=== PATIENT | male | born 1940 | race Caucasian/White ===

== ENCOUNTER 2018-07-16 11:09 | Emergency (ER) | payer MEDICARE, OTHER ==
--- NOTE | 2018-07-16 12:18 | EDM.PDOC ---
ED HPI GENERAL MEDICAL PROBLEM - General Chief Complaint: General Stated Complaint: RIGHT ELBOW PAIN Time Seen by Provider: 07/16/18 12:04 Source of Information: Reports: Patient History Limitations: Reports: No Limitations - History of Present Illness INITIAL COMMENTS - FREE TEXT/NARRATIVE: Patient is a 70-year-old gentleman who presents to the emergency department this morning with a complaint of right shoulder and elbow pain. Patient states discomfort has been intermittent, however started to become worse yesterday. Patient admits to shoveling snow 2 days ago. Patient does have a history of arthritic pain. Patient states he was unable to sleep last night. Patient also states he is having some dyspnea with exertion and also when he lies flat he can't catch his breath. Patient is currently on 40 mg Lasix daily. Patient does have chronic history of lower extremity edema. 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 Right Elbow Pain Score (Numeric/FACES): 8 - Related Data Allergies Allergy/AdvReac Type Severity Reaction Status Date / Time No Known Drug Allergies Allergy Cannot Verified 07/16/18 11:30 Remember Home Meds: Home Meds Benazepril HCl [Lotensin] 40 mg PO DAILY 07/16/18 [History] Cyanocobalamin (Vitamin B-12) [Vitamin B-12] 1,000 mcg PO DAILY 07/16/18 [ History] Fish Oil/[place]-3 Fatty Acids [Fish Oil 1,000 MG] 1 each PO DAILY 07/16/18 [ History] Furosemide 40 mg PO DAILY 07/16/18 [History] Lactobacillus Combination No.4 [Probiotic] 1 each PO DAILY 07/16/18 [History] Metoprolol Succinate [Toprol Xl] 50 mg PO DAILY 07/16/18 [History] Multivitamin [Multi-Vitamin Daily] 1 each PO DAILY 07/16/18 [History] atorvaSTATin [Lipitor] 20 mg PO DAILY 07/16/18 [History] Social & Family History - Tobacco Use Smoking Status *Q: Former Smoker Used Tobacco, but Quit: Yes Month/Year Tobacco Last Used: quit smoking 30 yrs ago Second Hand Smoke Exposure: No - Caffeine Use Caffeine Use: Reports: Coffee, Tea - Alcohol Use Days Per Week of Alcohol Use: 7 Number of Drinks Per Day: 4 Total Drinks Per Week: 28 - Recreational Drug Use Recreational Drug Use: No ED ROS GENERAL - Review of Systems Review Of Systems: ROS reveals no pertinent complaints other than HPI. Constitutional: Reports: No Symptoms HEENT: Reports: No Symptoms Respiratory: Reports: Shortness of Breath Cardiovascular: Reports: Blood Pressure Problem, Dyspnea on Exertion Endocrine: Reports: No Symptoms GI/Abdominal: Reports: No Symptoms : Reports: No Symptoms Musculoskeletal: Reports: Shoulder Pain (Right), Arm Pain (Right elbow) Skin: Reports: No Symptoms Neurological: Reports: No Symptoms Psychiatric: Reports: No Symptoms Hematologic/Lymphatic: Reports: No Symptoms Immunologic: Reports: No Symptoms ED EXAM, GENERAL - Physical Exam Exam: See Below Exam Limited By: No Limitations General Appearance: Alert, WD/WN, No Apparent Distress Throat/Mouth: Normal Inspection, Normal Oropharynx, No Airway Compromise Head: Atraumatic, Normocephalic Neck: Normal Inspection, Supple, Non-Tender, Full Range of Motion Respiratory/Chest: No Respiratory Distress, Rales (Bibasilar) Cardiovascular: Normal Peripheral Pulses, Regular Rate, Rhythm, No Murmur GI/Abdominal: Normal Bowel Sounds, Soft, Non-Tender Back Exam: Normal Inspection Extremities: Pedal Edema (3+ bilateral, with chronic changes proximal to knee), Joint Swelling (Right shoulder crepitus, without ecchymosis, warmth, or erythema.), Limited Range of Motion (Right shoulder due to discomfort). No: Slow Capillary Refill, Redness Neurological: Alert, Oriented, Normal Cognition Psychiatric: Normal Affect, Normal Mood Skin Exam: Warm, Dry, Intact, Normal Color, No Rash Lymphatic: No Adenopathy Course - Vital Signs Last Recorded V/S: Last Vital Signs Temp 96.6 F 07/16/18 11:22 Pulse 54 L 07/16/18 11:22 Resp 20 07/16/18 11:22 BP 180/100 H 07/16/18 11:22 Pulse Ox 94 L 07/16/18 11:22 - Orders/Labs/Meds Orders: Active Orders 24 hr Category Date Time Status Chest 2V [CR] Stat Exams 07/16/18 11:42 Ordered Shoulder Comp Rt [CR] Stat Exams 07/16/18 12:01 Ordered Labs: Laboratory Tests 07/16/18 07/16/18 Range/Units 11:58 11:58 WBC 9.28 (5.00-10.00) 10^3/uL RBC 4.96 (4.50-6.00) 10^6/uL Hgb 15.5 (13.0-17.0) g/dL Hct 46.8 (40.0-52.0) % MCV 94.4 H (82.0-92.0) fL MCH 31.3 H (27.0-31.0) pg MCHC 33.1 (32.0-36.0) g/dL RDW 14.0 (11.5-14.5) % Plt Count 188 (150-400) 10^3/uL MPV 10.2 (7.4-10.4) fL Immature Gran % (Auto) 0.2 (0.0-5.0) % Neut % (Auto) 74.1 H (50.0-70.0) % Lymph % (Auto) 15.6 L (20.0-40.0) % [place] % (Auto) 8.4 H (2.0-8.0) % Eos % (Auto) 1.5 (1.0-3.0) % Baso % (Auto) 0.2 (0.0-1.0) % Immature Gran # (Auto) 0.02 (0.00-0.50) 10^3/uL Neut # (Auto) 6.87 (2.50-7.00) 10^3/uL Lymph # (Auto) 1.45 (1.00-4.00) 10^3/uL [place] # (Auto) 0.78 (0.10-0.80) 10^3/uL Eos # (Auto) 0.14 (0.10-0.30) 10^3/uL Baso # (Auto) 0.02 (0.00-0.10) 10^3/uL Sodium 144 (136-145) mmol/L Potassium 3.9 (3.3-5.3) mmol/L Chloride 104 (98-115) mmol/L Carbon Dioxide 30.3 (21.0-32.0) mmol/L Anion Gap 13.6 (5-15) mmol/L BUN 17 (6-25) mg/dL Creatinine 0.72 (0.51-1.17) mg/dL Est Cr Clr Drug Dosing 92.81 mL/min Estimated GFR (MDRD) > 60 mL/min Glucose 107 H (75 - 99) mg/dL Calcium 9.0 (8.7-10.3) mg/dL Total Bilirubin 0.7 (0.2-1.0) mg/dL AST 12 L (15-37) U/L ALT 14 (12-78) U/L Alkaline Phosphatase 85 (46-116) IU/L B-Natriuretic Peptide 298 H (0-100) pg/mL Total Protein 7.1 (6.4-8.2) g/dL Albumin 3.54 (3.00-4.80) g/dL - Radiology Interpretation Free Text/Narrative:: Chest x-ray shows no acute cardiopulmonary process. Right shoulder x-ray shows osteophytic overgrowth of the humeral head versus impacted fracture. However, Patient does deny any injury. - Re-Assessments/Exams Free Text/Narrative Re-Assessment/Exam: 07/16/18 13:04 Patient afebrile, nontoxic appearing, vital signs stable. Right shoulder sling applied. Patient given 8 mg of dexamethasone IM, 5 mg hydrocodone to go. Patient will follow-up at [facility] tomorrow. Departure - Departure Time of Disposition: 13:08 Disposition: Home, Self-Care 01 Condition: Good Clinical Impression: Arthritis, shoulder region Hypertension Qualifiers: Hypertension type: unspecified Qualified Code(s): I10 - Essential (primary) hypertension - Discharge Information Instructions: Arthritis, Kizz-mg-Upeh, How to Take Your Blood Pressure, Easy-to -Read, What You Need to Know About Osteoarthritis, Hypertension, How to Use a Sling Referrals: Haylie Nuñez PA-C [Primary Care Provider] - Forms: ED Department Discharge Additional Instructions: Follow-up at [facility] tomorrow. Return to emergency department sooner if symptoms continue or worsen. Take medication as directed. - My Orders Last 24 Hours: My Active Orders 07/16/18 11:42 Chest 2V [CR] Stat 07/16/18 12:01 Shoulder Comp Rt [CR] Stat - Assessment/Plan Last 24 Hours: My Active Orders 07/16/18 11:42 Chest 2V [CR] Stat 07/16/18 12:01 Shoulder Comp Rt [CR] Stat Assessment:: Right shoulder arthritis Plan: Follow-up at clinic
[2018-07-16 12:32] LABS: ANION GAP 13.6 mmol/L (5-15); CHLORIDE,CL 104 mmol/L (98-115); SODIUM,NA 144 mmol/L (136-145)
[2018-07-16] MEDS ORDERED: Dexamethasone 4 MG/ML SDV IM ONE (12:37)
--- NOTE | 2018-07-16 12:52 | CR ---
[id number] RAD/RAD Shoulder Right 2V Min EXAM: RAD Shoulder Right 2V Min CLINICAL DATA: RIGHT SHOULDER PAIN COMPARISON: NO PREVIOUS SIMILAR EXAM IS AVAILABLE. FINDINGS: There appears to be an impacted humeral neck fracture, age indeterminate. There are degenerative changes. There is loss of the subacromial joint space. IMPRESSION: APPEARANCE OF IMPACTED HUMERAL NECK FRACTURE AGE INDETERMINATE. ASSOCIATED DEGENERATIVE CHANGES. OSTEOPHYTIC OVERGROWTH OF THE HUMERAL HEAD COULD RESULT IN A SIMILAR APPEARANCE BUT AN IMPACTED FRACTURE IS MORE LIKELY. Edinson Tuttle MD 07/16/18 0220 Thank you for allowing us to participate in the care of your patient.
--- NOTE | 2018-07-16 12:54 | CR ---
[id number] RAD/RAD Chest PA And Lateral EXAM: RAD Chest PA And Lateral CLINICAL DATA: SHORTNESS OF BREATH COMPARISON: NO PREVIOUS SIMILAR EXAM IS AVAILABLE. FINDINGS: There is no pneumonia or edema. The cardiac silhouette is moderately enlarged and the thoracic aorta moderately tortuous. The shoulders are compared between right and left sides. There is slight asymmetry in appearance of the right side. It is not entirely clear if there is an impacted fracture of the right shoulder based upon the stable appearance of the left shoulder on the chest radiograph. Further views of the right shoulder may be helpful to help in this distinction. IMPRESSION: NO PNEUMONIA OR EDEMA. NO DEFINITE RIGHT SHOULDER FRACTURE. Edinson Tuttle MD 07/16/18 1819 Thank you for allowing us to participate in the care of your patient.
[2018-07-16] MEDS ORDERED: Acetaminophen/HYDROcodone 325-10 MG Tab PO ONE (13:07)
== END 2018-07-16 13:25 | disposition home or self-care (01) ==
LOC: KA.ED 11:09
DX: M19.011 Primary osteoarthritis, right shoulder (principal); Z79.899 Other long term (current) drug therapy; Z87.891 Personal history of nicotine dependence
CPT/HCPCS: 36415; 71046; 73030-RT; 80053; 83880; 85025; 96372; 99283; 99283-25; A9270-GY; J1100

== ENCOUNTER 2019-03-09 14:52 | Observation (INO) | payer MEDICARE, OTHER ==
[2019-03-09 15:42] LABS: ANION GAP 14.9 mmol/L (5-15); CHLORIDE,CL 96 mmol/L (98-115); SODIUM,NA 138 mmol/L (136-145)
--- NOTE | 2019-03-09 15:44 | CR ---
[id number] RAD/RAD Chest PA And Lateral EXAM: FRONTAL AND LATERAL CHEST INDICATION: UNSPECIFIED ATRIAL FIBRILLATION. COMPARISON: July 16, 2018. DISCUSSION: Stable cardiomegaly. Mild pulmonary edema is new or increased relative to the previous examination. Trace bilateral pleural effusions. IMPRESSION: 1. Mild congestive heart failure. Andrew James MD 03/09/19 1541 Thank you for allowing us to participate in the care of your patient.
[2019-03-09] MEDS ORDERED: Sodium Chloride 0.9% 10 ML Syringe FLUSH PRN (16:30)
[2019-03-09] MEDS: Sodium Chloride 0.9% 1,000 ML IV SCH (17:29)
[2019-03-09] MEDS ORDERED: Non-Formulary Medication 1 Each (Glucosam/Chondr/Collagn/Hyalur [Glucosamine & Chondroitin PO SCH (17:45)
[2019-03-09] MEDS ORDERED: cefTRIAXone 1 GM Vial IVPUSH ONE (18:00)
[2019-03-09] MEDS ORDERED: Azithromycin 250 MG Tab PO ONE (18:00)
[2019-03-09] MEDS ORDERED: GABAPENTIN 300 MG PO SCH (21:00)
[2019-03-09] MEDS: APIXABAN 5 MG PO SCH (21:32)
[2019-03-10] MEDS: Sodium Chloride 0.9% 1,000 ML IV SCH (03:31)
[2019-03-10 08:13] LABS: ANION GAP 9.9 mmol/L (5-15); CHLORIDE,CL 98 mmol/L (98-115); SODIUM,NA 136 mmol/L (136-145)
[2019-03-10 08:44] VITALS: BP 142/79; PULSE 110
[2019-03-10] MEDS: APIXABAN 5 MG PO SCH (08:44)
[2019-03-10] MEDS ORDERED: Cyanocobalamin (Vitamin B12) 500 MCG Tab PO SCH (09:00)
[2019-03-10] MEDS ORDERED: BENAZEPRIL 40 MG PO SCH (09:00)
[2019-03-10] MEDS ORDERED: Fish Oil/Omega-3 Fatty Acids 1 Gm Cap PO SCH (09:00)
[2019-03-10] MEDS ORDERED: HYDROCHLOROTHIAZIDE 25 MG PO SCH (09:00)
[2019-03-10] MEDS ORDERED: ATORVASTATIN 20 MG PO SCH (09:00)
[2019-03-10] MEDS ORDERED: METOPROLOL SUCCINATE 50 MG PO SCH (09:00)
[2019-03-10] MEDS ORDERED: Multivitamins with Minerals/Iron/Folic Acid/Lycopene Tab PO SCH (09:00)
[2019-03-10] MEDS ORDERED: Ibuprofen 600 MG Tab PO SCH (09:00)
[2019-03-10] MEDS ORDERED: Acetaminophen 325 MG Tab PO SCH (09:00)
[2019-03-10 10:19] LABS: HEMOGLOBIN A1C 5.8 % (4.3-5.7)
--- NOTE | 2019-03-10 10:35 | PCM.DCSUM1 ---
Discharge Summary - Hospital Course Free Text/Narrative:: Patrick is discharged from an observation stay from 03/09/19 - 03/10/19 for generalized weakness, sinus tachycardia and leukocytosis. He had been feeling unwell for approximately 2 weeks. He has a recent hx of being diagnosed with a- fib with RVR and is rate controlled on metoprolol and recently started Eliquis 5 mg PO BID. He notes that he had been waking up sweating at night, he felt he had a fever but never did check his temp. He had a mild cough that was minimally productive in the mornings. He had no ST or congestion, no ear pain or sinus pressure. He denies any sick contacts. He did receive his annual influenza vaccine this year. He noted the day of admission he was very weak and he had terrible body aches. His drove him to the clinic for an evaluation. Patrick was concerned he had "walking pneumonia". Work-up in clinic included CXR, EKG, and labs. CXR showed mild CHF but no infiltrates. EKG was sinus tachycardia, no a-fib. Influenza swab was negative. Troponin was <0.04. WBC was elevated at 12.16 with a left shift of 82 % neutrophils. Given his overall weakness and ill appearance he was admitted. He was empirically treated for a respiratory illness with azithromycin 500 mg PO x 1 dose and rocephin 1 gram IV x 1 dose. He had a mild temp of 99 at admission. Blood cultures were not obtained as he had no pneumonia by CXR. UA was obtained which was negative. Amite screen was negative. He was started on IVF's at 100 cc per hour and he states that by midnight he was feeling much better. He was able to eat breakfast this morning and has been up to the bathroom feeling much less weak. He would like to go home today. WBC has improved to 10.04 with a left shift improving to 74%. Antibiotics are not indicated at discharge. He also had two elevated BG's on his labs (one non-fasting). A1C was 5.8. He has an appointment with cardiology on 03/14/19 in [place]. There will be no medication changes at discharge. He was encouraged to rest today and tomorrow and drink plenty of water at home. He could have stayed another day, however, he wanted to go home today and no infectious source was identified and overall he is clinically improved and so I feel he is safe to discharge home today. Admission Date: 03/09/19 Discharge Date: 03/10/19 Admission Diagnoses: Generalized Weakness Sinus tachycardia Neutrophilic leukocytosis Discharge Diagnoses: Generalized Weakness, improving. Sinus tachycardia, improving, rate low 100's. Neutrophilic leukocytosis, improving. Secondary, chronic, diagnoses: Anxiety Arthritis A-fib, paroxysmal BPH HTN Hyperlipidemia Obesity Peripheral neuropathy Psoriasis Severe SHAQUILLE Vit D deficiency Diagnosis: Stroke: No Modified Meagan Scale: No Signif.Disability Despite Sympt.Able to Carry Out Usual Act./Duties Modified [place] Scale Score: 1 - Discharge Data Discharge Date: 03/10/19 Discharge Disposition: Home, Self-Care 01 Condition: Good - Referral to Home Health Primary Care Physician: Kassy Fam MD - Discharge Diagnosis/Problem(s) (1) Generalized weakness SNOMED Code(s): 70450100 ICD Code: R53.1 - WEAKNESS Status: Acute Current Visit: Yes (2) Sinus tachycardia SNOMED Code(s): 34450475 ICD Code: R00.0 - TACHYCARDIA, UNSPECIFIED Status: Acute Current Visit: Yes (3) Neutrophilic leukocytosis SNOMED Code(s): 594675796, 478307804 ICD Code: D72.9 - DISORDER OF WHITE BLOOD CELLS, UNSPECIFIED Status: Acute Current Visit: Yes - Patient Instructions Diet: Regular Diet as Tolerated Activity: Rest and Relax Today - Discharge Plan *PRESCRIPTION DRUG MONITORING PROGRAM REVIEWED*: Not Applicable *COPY OF PRESCRIPTION DRUG MONITORING REPORT IN PATIENT SELVIN: Not Applicable Home Medications: Home Meds Benazepril HCl [Lotensin] 40 mg PO DAILY 07/16/18 [History] Cyanocobalamin (Vitamin B-12) [Vitamin B-12] 1,000 mcg PO DAILY 07/16/18 [ History] Fish Oil/[place]-3 Fatty Acids [Fish Oil 1,000 MG] 1 each PO DAILY 07/16/18 [ History] Metoprolol Succinate [Toprol Xl] 50 mg PO DAILY 07/16/18 [History] Multivitamin [Multi-Vitamin Daily] 1 each PO DAILY 07/16/18 [History] atorvaSTATin [Lipitor] 20 mg PO DAILY 07/16/18 [History] Acetaminophen [Tylenol] 650 mg PO DAILY 03/09/19 [History] Apixaban [Eliquis] 5 mg PO BID 03/09/19 [History] Gabapentin [Neurontin] 300 mg PO BEDTIME 03/09/19 [History] Glucosam/Chondr/Collagn/Hyalur [Glucosamine & Chondroitin Cap] 2 cap PO ASDIRECTED 03/09/19 [History] Ibuprofen 600 mg PO DAILY 03/09/19 [History] Mv-Mn/Iron/Folic Acid/Herb 190 [Vitamin D3 Complete Caplet] 1 tab PO DAILY 03/09 [History] hydroCHLOROthiazide [Hydrochlorothiazide] 25 mg PO DAILY 03/09/19 [History] - Discharge Summary/Plan Comment DC Time >30 min.: No - General Info Date of Service: 03/10/19 Admission Dx/Problem (Free Text: Generalized weakness - Patient Data Vitals - Most Recent: Last Vital Signs Temp 98.6 F 03/10/19 06:30 Pulse 110 H 03/10/19 08:43 Resp 20 03/10/19 06:30 BP 142/79 H 03/10/19 08:43 Pulse Ox 91 L 03/10/19 03:33 Weight - Most Recent: 301 lb 3.2 oz I&O - Last 24 hours: Intake & Output 03/09/19 03/10/19 03/10/19 22:59 06:59 14:59 Intake Total 785 1066 Output Total 400 650 Balance 385 416 Lab Results - Last 24 hrs: Laboratory Results - last 24 hr 03/09/19 03/09/19 03/09/19 Range/Units 15:10 15:10 15:10 WBC 12.16 H (5.00-10.00) 10^3/uL RBC 4.64 (4.50-6.00) 10^6/uL Hgb 14.0 (13.0-17.0) g/dL Hct 43.7 (40.0-52.0) % MCV 94.2 H (82.0-92.0) fL MCH 30.2 (27.0-31.0) pg MCHC 32.0 (32.0-36.0) g/dL RDW 13.5 (11.5-14.5) % Plt Count 317 D (150-400) 10^3/uL MPV 9.9 (7.4-10.4) fL Immature Gran % (Auto) 0.3 (0.0-5.0) % Neut % (Auto) 82.3 H (50.0-70.0) % Lymph % (Auto) 7.9 L (20.0-40.0) % [place] % (Auto) 8.7 H (2.0-8.0) % Eos % (Auto) 0.6 L (1.0-3.0) % Baso % (Auto) 0.2 (0.0-1.0) % Immature Gran # (Auto) 0.04 (0.00-0.50) 10^3/uL Neut # (Auto) 10.00 H (2.50-7.00) 10^3/uL Lymph # (Auto) 0.96 L (1.00-4.00) 10^3/uL [place] # (Auto) 1.06 H (0.10-0.80) 10^3/uL Eos # (Auto) 0.07 L (0.10-0.30) 10^3/uL Baso # (Auto) 0.03 (0.00-0.10) 10^3/uL Sodium 138 (136-145) mmol/L Potassium 4.0 (3.3-5.3) mmol/L Chloride 96 L (98-115) mmol/L Carbon Dioxide 31.1 (21.0-32.0) mmol/L Anion Gap 14.9 (5-15) mmol/L BUN 14 (6-25) mg/dL Creatinine 0.65 (0.51-1.17) mg/dL Est Cr Clr Drug Dosing TNP Estimated GFR (MDRD) > 60 mL/min Glucose 161 H (75 - 99) mg/dL Hemoglobin A1c (4.3-5.7) % Calcium 9.7 (8.7-10.3) mg/dL Troponin I < 0.04 (0.00-0.070) ng/mL Specimen Type Urine Color (YELLOW) Urine Appearance (CLEAR) Urine pH (5.0-9.0) Ur Specific Gabbs (1.005-1.030) Urine Protein (NEGATIVE) mg/dL Urine Glucose (UA) (NEGATIVE) mg/dL Urine Ketones (NEGATIVE) mg/dL Urine Occult Blood (NEGATIVE) Urine Nitrite (NEGATIVE) Urine Bilirubin (NEGATIVE) Urine Urobilinogen (0.2-1.0) E.U./dL Ur Leukocyte Esterase (NEGATIVE) Urine RBC (0-5) /HPF Urine WBC (0-5) /HPF Ur Epithelial Cells /LPF Urine Bacteria (NONE TO FEW) /HPF Monoscreen (NEGATIVE) 03/09/19 03/09/19 03/10/19 Range/Units 15:10 18:40 07:08 WBC 10.04 H (5.00-10.00) 10^3/uL RBC 4.16 L (4.50-6.00) 10^6/uL Hgb 12.8 L (13.0-17.0) g/dL Hct 39.4 L (40.0-52.0) % MCV 94.7 H (82.0-92.0) fL MCH 30.8 (27.0-31.0) pg MCHC 32.5 (32.0-36.0) g/dL RDW 13.3 (11.5-14.5) % Plt Count 275 (150-400) 10^3/uL MPV 10.3 (7.4-10.4) fL Immature Gran % (Auto) 0.3 (0.0-5.0) % Neut % (Auto) 74.3 H (50.0-70.0) % Lymph % (Auto) 14.4 L (20.0-40.0) % Amite % (Auto) 10.2 H (2.0-8.0) % Eos % (Auto) 0.4 L (1.0-3.0) % Baso % (Auto) 0.4 (0.0-1.0) % Immature Gran # (Auto) 0.03 (0.00-0.50) 10^3/uL Neut # (Auto) 7.46 H (2.50-7.00) 10^3/uL Lymph # (Auto) 1.45 (1.00-4.00) 10^3/uL [place] # (Auto) 1.02 H (0.10-0.80) 10^3/uL Eos # (Auto) 0.04 L (0.10-0.30) 10^3/uL Baso # (Auto) 0.04 (0.00-0.10) 10^3/uL Sodium (136-145) mmol/L Potassium (3.3-5.3) mmol/L Chloride (98-115) mmol/L Carbon Dioxide (21.0-32.0) mmol/L Anion Gap (5-15) mmol/L BUN (6-25) mg/dL Creatinine (0.51-1.17) mg/dL Est Cr Clr Drug Dosing Estimated GFR (MDRD) mL/min Glucose (75 - 99) mg/dL Hemoglobin A1c (4.3-5.7) % Calcium (8.7-10.3) mg/dL Troponin I (0.00-0.070) ng/mL Specimen Type Urinvoid Urine Color Yellow (YELLOW) Urine Appearance Clear (CLEAR) Urine pH 5.0 (5.0-9.0) Ur Specific Gabbs 1.025 (1.005-1.030) Urine Protein Negative (NEGATIVE) mg/dL Urine Glucose (UA) Negative (NEGATIVE) mg/dL Urine Ketones 15 H (NEGATIVE) mg/dL Urine Occult Blood Negative (NEGATIVE) Urine Nitrite Negative (NEGATIVE) Urine Bilirubin Small H (NEGATIVE) Urine Urobilinogen 4.0 H (0.2-1.0) E.U./dL Ur Leukocyte Esterase Negative (NEGATIVE) Urine RBC 0-5 (0-5) /HPF Urine WBC 0-5 (0-5) /HPF Ur Epithelial Cells Rare /LPF Urine Bacteria Rare (NONE TO FEW) /HPF Monoscreen Negative (NEGATIVE) 03/10/19 03/10/19 Range/Units 07:08 07:08 WBC (5.00-10.00) 10^3/uL RBC (4.50-6.00) 10^6/uL Hgb (13.0-17.0) g/dL Hct (40.0-52.0) % MCV (82.0-92.0) fL MCH (27.0-31.0) pg MCHC (32.0-36.0) g/dL RDW (11.5-14.5) % Plt Count (150-400) 10^3/uL MPV (7.4-10.4) fL Immature Gran % (Auto) (0.0-5.0) % Neut % (Auto) (50.0-70.0) % Lymph % (Auto) (20.0-40.0) % Amite % (Auto) (2.0-8.0) % Eos % (Auto) (1.0-3.0) % Baso % (Auto) (0.0-1.0) % Immature Gran # (Auto) (0.00-0.50) 10^3/uL Neut # (Auto) (2.50-7.00) 10^3/uL Lymph # (Auto) (1.00-4.00) 10^3/uL [place] # (Auto) (0.10-0.80) 10^3/uL Eos # (Auto) (0.10-0.30) 10^3/uL Baso # (Auto) (0.00-0.10) 10^3/uL Sodium 136 (136-145) mmol/L Potassium 3.7 (3.3-5.3) mmol/L Chloride 98 (98-115) mmol/L Carbon Dioxide 31.8 (21.0-32.0) mmol/L Anion Gap 9.9 (5-15) mmol/L BUN 13 (6-25) mg/dL Creatinine 0.61 (0.51-1.17) mg/dL Est Cr Clr Drug Dosing 104.58 Estimated GFR (MDRD) > 60 mL/min Glucose 130 H (75 - 99) mg/dL Hemoglobin A1c 5.8 H (4.3-5.7) % Calcium 9.1 (8.7-10.3) mg/dL Troponin I (0.00-0.070) ng/mL Specimen Type Urine Color (YELLOW) Urine Appearance (CLEAR) Urine pH (5.0-9.0) Ur Specific Gabbs (1.005-1.030) Urine Protein (NEGATIVE) mg/dL Urine Glucose (UA) (NEGATIVE) mg/dL Urine Ketones (NEGATIVE) mg/dL Urine Occult Blood (NEGATIVE) Urine Nitrite (NEGATIVE) Urine Bilirubin (NEGATIVE) Urine Urobilinogen (0.2-1.0) E.U./dL Ur Leukocyte Esterase (NEGATIVE) Urine RBC (0-5) /HPF Urine WBC (0-5) /HPF Ur Epithelial Cells /LPF Urine Bacteria (NONE TO FEW) /HPF Monoscreen (NEGATIVE) ELIAN Results - Last 24 hrs: Microbiology 03/09/19 15:00 Influenza Type A Antigen Screen - Final Nasopharyngeal Swab NEGATIVE INFLUENZA A VIRUS AG REFERENCE RANGE: NEGATIVE Influenza Type B Antigen Screen - Final NEGATIVE INFLUENZA B VIRUS AG REFERENCE RANGE: NEGATIVE Med Orders - Current: Current Medications Acetaminophen (Tylenol) 650 mg PO DAILY [facility] Last Admin: 03/10/19 09:00 Dose: Not Given Apixaban (Eliquis) 5 mg PO BID [facility] Last Admin: 03/10/19 08:44 Dose: 5 mg Cyanocobalamin (Vitamin B12) 1,000 mcg PO DAILY [facility] Last Admin: 03/10/19 09:00 Dose: Not Given Fish Oil (Fish Oil) 1 gm PO DAILY [facility] Last Admin: 03/10/19 09:00 Dose: Not Given Gabapentin (Neurontin) 300 mg PO BEDTIME [facility] Last Admin: 03/09/19 21:41 Dose: 300 mg Hydrochlorothiazide (Hydrochlorothiazide) 25 mg PO DAILY [facility] Last Admin: 03/10/19 08:42 Dose: 25 mg Sodium Chloride (Normal Saline) 1,000 mls @ 100 mls/hr IV ASDIRECTED [facility] Last Admin: 03/10/19 03:31 Dose: 100 mls/hr Ibuprofen (Motrin) 600 mg PO DAILY [facility] Last Admin: 03/10/19 09:00 Dose: Not Given Metoprolol Succinate (Toprol Xl) 50 mg PO DAILY [facility] Last Admin: 03/10/19 08:43 Dose: 50 mg Multivitamins/Minerals (Centrum) 1 tab PO DAILY [facility] Last Admin: 03/10/19 09:00 Dose: Not Given Atorvastatin 20 Mg Tab #Patient's Own Med# 20 each PO DAILY [facility] Last Admin: 03/10/19 08:43 Dose: 20 each Benazepril 40 Mg Tab (#Patient's Own Med#) 40 each PO DAILY [facility] Last Admin: 03/10/19 08:42 Dose: 40 each Non-Formulary Medication (Glucosam/Chondr/Collagn/Hyalur [Glucosamine & Chondroitin Cap]) 2 cap PO ASDIRECTED [facility] Sodium Chloride (Saline Flush) 10 ml FLUSH Q8HR PRN PRN Reason: keep vein open Last Admin: 03/09/19 17:31 Dose: 10 ml Discontinued Medications Azithromycin (Zithromax) 500 mg PO ONETIME ONE Stop: 03/09/19 18:01 Last Admin: 03/09/19 18:13 Dose: 500 mg Ceftriaxone Sodium (Rocephin) 1 gm IVPUSH ONETIME ONE Stop: 03/09/19 18:01 Last Admin: 03/09/19 18:13 Dose: 1 gm Non-Formulary Medication (Mv-Mn/Iron/Folic Acid/Herb 190 [Vitamin D3 Complete Caplet]) 1 tab PO DAILY ISIDRO - Exam General: Reports: Alert, Oriented, Cooperative, No Acute Distress Lungs: Reports: Normal Respiratory Effort, Wheezing (Mild wheeze at the bases bilaterally) Cardiovascular: Reports: Regular Rate, Regular Rhythm, Tachycardia (Mild tachycardia), Murmurs (2/6 systolic murmur) GI/Abdominal Exam: Normal Bowel Sounds
== END 2019-03-10 12:40 | disposition home or self-care (01) ==
LOC: KA.OC 14:52 → KA.MS 16:12
PROVIDERS: ADMIT Internal Medicine; ATTEND Internal Medicine
DX: R53.1 Weakness (principal); R00.0 Tachycardia, unspecified; D72.829 Elevated white blood cell count, unspecified; F41.9 Anxiety disorder, unspecified; M19.90 Unspecified osteoarthritis, unspecified site; I48.0 Paroxysmal atrial fibrillation; N40.0 Benign prostatic hyperplasia without lower urinary tract symptoms; I10 Essential (primary) hypertension; E78.5 Hyperlipidemia, unspecified; G62.9 Polyneuropathy, unspecified; L40.9 Psoriasis, unspecified; G47.33 Obstructive sleep apnea (adult) (pediatric); E55.9 Vitamin D deficiency, unspecified; E66.9 Obesity, unspecified; Z79.899 Other long term (current) drug therapy; Z68.41 Body mass index [BMI] 40.0-44.9, adult
CPT/HCPCS: 36415; 71046; 80048; 81001; 83036; 84484; 85025; 86308; 87804; 93005; 96361; 96374; A9270-GY; G0378; J0696; J7030

== ENCOUNTER 2021-02-17 19:50 | Inpatient (IN) | payer MEDICARE, OTHER ==
[2021-02-17] MEDS ORDERED: Sodium Chloride 0.9% 10 ML Syringe FLUSH PRN (20:00)
--- NOTE | 2021-02-17 20:28 | EDM.PDOC ---
ED HPI GENERAL MEDICAL PROBLEM - General Chief Complaint: General Stated Complaint: Weakness Time Seen by Provider: 02/17/21 19:50 Source of Information: Reports: Patient, EMS, EMS Notes Reviewed History Limitations: Reports: No Limitations - History of Present Illness INITIAL COMMENTS - FREE TEXT/NARRATIVE: Carlin, 81-year-old male, delivered to the emergency department via [facility] ambulance after this evening, he slid out of bed and was unable to get up off the floor. He did not incur any injury that he is aware of and is in very good spirits. 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 He stated he has had ongoing edema issues of which medication adjustments have been made as well as pain medication adjustments. He was seen in the clinic last week having lab work done with no significant findings contributing to his symptoms. He is gabapentin had been stopped he was taken off ibuprofen and placed on tramadol, and yesterday received a prescription for hydrocodone to alternate with the tramadol for his excessive pain. He is vaccinated against COVID-19 including booster and is unknown to any e xposures. Onset: Today, Gradual Duration: Hour(s):, Getting Worse Location: Reports: Generalized Severity: Moderate Improves with: Reports: None Context: Reports: Other Associated Symptoms: Reports: Cough, Weakness, Other (edema, increased pain) - Related Data Allergies Allergy/AdvReac Type Severity Reaction Status Date / Time No Known Drug Allergies Allergy Cannot Verified 03/10/19 07:08 Remember Home Meds: Home Meds Fish Oil/Dyer-3 Fatty Acids [Fish Oil 1,000 MG] 1 each PO DAILY 07/16/18 [History] Multivitamin [Multi-Vitamin Daily] 1 each PO DAILY 07/16/18 [History] Acetaminophen [Tylenol] 650 mg PO DAILY 03/09/19 [History] Apixaban [Eliquis] 5 mg PO BID 03/09/19 [History] Gabapentin [Neurontin] 300 mg PO TID 03/09/19 [History] Ibuprofen 600 mg PO DAILY 03/09/19 [History] Mv-Mn/Iron/Folic Acid/Herb 190 [Vitamin D3 Complete Caplet] 1 tab PO DAILY 03/09/19 [History] Apremilast [Otezla] 30 mg PO BID 02/17/21 [History] Diclofenac Sodium [Voltaren] 1 applic TP BID PRN 02/17/21 [History] Ergocalciferol (Vitamin D2) [Vitamin D2] 50,000 unit PO MO 02/17/21 [History] Hydrocodone/Acetaminophen [HYDROcodone-Acetaminophen 10-325 MG] 1 each PO Q6H PRN 02/17/21 [History] Promethazine [Phenergan] 25 mg PO Q6H PRN 02/17/21 [History] Triamcinolone Acetonide [Triamcinolone Acetonide 0.1% Oint] 1 applic TOP BID 02/17/21 [History] traMADol [Ultram] 50 mg PO Q6H PRN 02/17/21 [History] Past Medical History HEENT History: Reports: Cataract, Impaired Vision Cardiovascular History: Reports: Afib, Heart Murmur, High Cholesterol, Hypertension, SOB on Exertion Respiratory History: Reports: SOB Gastrointestinal History: Reports: Chronic Constipation, GERD Genitourinary History: Reports: Urinary Incontinence Musculoskeletal History: Reports: Arthritis, Fracture, Gout Neurological History: Reports: Neuropathy, Peripheral Endocrine/Metabolic History: Reports: Obesity/BMI 30+ Hematologic History: Reports: None Oncologic (Cancer) History: Reports: None Dermatologic History: Reports: Psoriasis - Infectious Disease History Infectious Disease History: Reports: Chicken Pox, Measles, Mononucleosis, Mumps, Shingles - Past Surgical History HEENT Surgical History: Reports: Adenoidectomy, Cataract Surgery, Detached Retina, Tonsillectomy Cardiovascular Surgical History: Reports: None Respiratory Surgical History: Reports: None GI Surgical History: Reports: EGD Endocrine Surgical History: Reports: None Neurological Surgical History: Reports: None Musculoskeletal Surgical History: Reports: None Oncologic Surgical History: Reports: None Dermatological Surgical History: Reports: None Social & Family History - Family History Family Medical History: No Pertinent Family History - Tobacco Use Tobacco Use Status *Q: Former Tobacco User Used Tobacco, but Quit: Yes Month/Year Tobacco Last Used: 2015 - Caffeine Use Caffeine Use: Reports: None - Alcohol Use Days Per Week of Alcohol Use: 6 Number of Drinks Per Day: 2 Total Drinks Per Week: 12 - Recreational Drug Use Recreational Drug Use: No ED ROS GENERAL - Review of Systems Review Of Systems: See Below Constitutional: Reports: No Symptoms, Fatigue. Denies: Fever, Chills HEENT: Reports: No Symptoms Respiratory: Reports: Cough Cardiovascular: Reports: Edema. Denies: Chest Pain, Palpitations Endocrine: Reports: No Symptoms GI/Abdominal: Reports: No Symptoms : Reports: No Symptoms Musculoskeletal: Reports: Muscle Pain Skin: Reports: Other (Pain) Neurological: Reports: No Symptoms Psychiatric: Reports: No Symptoms Hematologic/Lymphatic: Reports: No Symptoms Immunologic: Reports: No Symptoms ED EXAM, GENERAL - Physical Exam Exam: See Below Free Text/Narrative:: Alert, oriented, appropriate to questions and conversation. HEENT shows no discharge nor deformity. Scar to the right frontal lobe area from previous surgery There is PERRLA with no icterus no injection. Neck is soft supple [place] with no rigidity or lymphadenopathy. Thorax he is diminished predominantly secondary to body habitus slightly more so in the bases. No wheezes nor crackles with some scattered rhonchi. Cardiac is S1-S2 I do not appreciate any irregularity to the beats, no ectopic beats auscultated in a grade 1 systolic murmur that is very faint again likely body habitus playing a part of this. He has a very large pannus of his abdomen with some skin irritation of chronicity with bowel sounds present, no tenderness to palpation. There is +3 edema to the lower extremities with some ruborous presentation of the tissue, no pain to palpation. There is edema to the wrists and hands that is +2 with radial pulse present and correlating apical heart rate. He was wearing gloves on his hands but did not explain reasoning for that. #1 Interpretation EKG Date: 02/17/21 Time: 20:23 Rhythm: NSR Rate (Beats/Min): 93 [place]: Normal P-Wave: Present QRS: Normal ST-T: Normal QT: Normal Comparison: NA - No Prior EKG Course - Vital Signs Last Recorded V/S: Last Vital Signs Temp 98.1 F 02/17/21 19:51 Pulse 90 02/17/21 21:50 Resp 20 02/17/21 21:50 BP 148/82 H 02/17/21 21:50 Pulse Ox 95 02/17/21 21:50 - Orders/Labs/Meds Orders: Active Orders 24 hr Category Date Time Status Patient Status [ADT] Routine ADT 02/17/21 23:32 Active Peripheral IV Care [RC] . DIRECTED Care 02/17/21 20:01 Active CULTURE BLOOD [BC] Stat Lab 02/17/21 20:01 Ordered CULTURE BLOOD [BC] Stat Lab 02/17/21 20:01 Ordered Sodium Chloride 0.9% [Saline Flush] Med 02/17/21 20:00 Active 10 ml FLUSH Q8HR PRN Blood Culture x2 Reflex Set [OM.PC] Stat Oth 02/17/21 20:00 Ordered Peripheral IV Insertion Adult [OM.PC] Stat Oth 02/17/21 20:00 Ordered EKG 12 Lead [EK] Stat Ther 02/17/21 20:00 Ordered Medication Orders Sodium Chloride (Sodium Chloride 0.9% 10 Ml Syringe) 10 ml FLUSH Q8HR PRN PRN Reason: keep vein open Labs: Laboratory Tests 02/17/21 02/17/21 02/17/21 Range/Units 20:00 20:00 20:00 WBC 10.89 H (5.00-10.00) 10^3/uL RBC 4.50 (4.50-6.00) 10^6/uL Hgb 13.0 (13.0-17.0) g/dL Hct 41.0 (40.0-52.0) % MCV 91.1 (82.0-92.0) fL MCH 28.9 (27.0-31.0) pg MCHC 31.7 L (32.0-36.0) g/dL RDW 13.7 (11.5-14.5) % Plt Count 251 (150-400) 10^3/uL MPV 9.3 (7.4-10.4) fL Immature Gran % (Auto) 0.2 (0.0-5.0) % Neut % (Auto) 84.9 H (50.0-70.0) % Lymph % (Auto) 6.1 L (20.0-40.0) % [place] % (Auto) 8.4 H (2.0-8.0) % Eos % (Auto) 0.2 L (1.0-3.0) % Baso % (Auto) 0.2 (0.0-1.0) % Neut # (Auto) 9.26 H (2.50-7.00) 10^3/uL Lymph # (Auto) 0.66 L (1.00-4.00) 10^3/uL [place] # (Auto) 0.91 H (0.10-0.80) 10^3/uL Eos # (Auto) 0.02 L (0.10-0.30) 10^3/uL Baso # (Auto) 0.02 (0.00-0.10) 10^3/uL Immature Gran # (Auto) 0.02 (0.00-0.50) 10^3/uL Sodium 137 (136-145) mmol/L Potassium 2.7 L (3.5-5.1) mmol/L Chloride 96 L (98-107) mmol/L Carbon Dioxide 30.8 (21.0-32.0) mmol/L Anion Gap 12.9 (5-15) mmol/L BUN 16 (7-18) mg/dL Creatinine 0.67 (0.51-1.17) mg/dL Est Cr Clr Drug Dosing 89.28 mL/min Estimated GFR (MDRD) > 60 mL/min Glucose 127 (70-140) mg/dL Lactic Acid 1.5 (0.4-2.0) mmol/L Calcium 9.0 (8.7-10.3) mg/dL Total Bilirubin 2.8 H (0.2-1.0) mg/dL AST 22 (15-37) U/L ALT 19 (14-63) U/L Alkaline Phosphatase 98 (46-116) U/L Creatine Kinase 190 (26-276) U/L Troponin I High Sens 18.500 (0-76.000) pg/mL B-Natriuretic Peptide 430 H (0-100) pg/mL Total Protein 7.1 (6.4-8.2) g/dL Albumin 2.82 L (3.40-5.00) g/dL SARS-CoV-2 RNA (FRANK) (NEGATIVE) 02/17/21 Range/Units 20:32 WBC (5.00-10.00) 10^3/uL RBC (4.50-6.00) 10^6/uL Hgb (13.0-17.0) g/dL Hct (40.0-52.0) % MCV (82.0-92.0) fL MCH (27.0-31.0) pg MCHC (32.0-36.0) g/dL RDW (11.5-14.5) % Plt Count (150-400) 10^3/uL MPV (7.4-10.4) fL Immature Gran % (Auto) (0.0-5.0) % Neut % (Auto) (50.0-70.0) % Lymph % (Auto) (20.0-40.0) % [place] % (Auto) (2.0-8.0) % Eos % (Auto) (1.0-3.0) % Baso % (Auto) (0.0-1.0) % Neut # (Auto) (2.50-7.00) 10^3/uL Lymph # (Auto) (1.00-4.00) 10^3/uL [place] # (Auto) (0.10-0.80) 10^3/uL Eos # (Auto) (0.10-0.30) 10^3/uL Baso # (Auto) (0.00-0.10) 10^3/uL Immature Gran # (Auto) (0.00-0.50) 10^3/uL Sodium (136-145) mmol/L Potassium (3.5-5.1) mmol/L Chloride (98-107) mmol/L Carbon Dioxide (21.0-32.0) mmol/L Anion Gap (5-15) mmol/L BUN (7-18) mg/dL Creatinine (0.51-1.17) mg/dL Est Cr Clr Drug Dosing mL/min Estimated GFR (MDRD) mL/min Glucose (70-140) mg/dL Lactic Acid (0.4-2.0) mmol/L Calcium (8.7-10.3) mg/dL Total Bilirubin (0.2-1.0) mg/dL AST (15-37) U/L ALT (14-63) U/L Alkaline Phosphatase (46-116) U/L Creatine Kinase (26-276) U/L Troponin I High Sens (0-76.000) pg/mL B-Natriuretic Peptide (0-100) pg/mL Total Protein (6.4-8.2) g/dL Albumin (3.40-5.00) g/dL SARS-CoV-2 RNA (FRANK) Negative (NEGATIVE) Meds: Medications Generic Name Dose Route Start Last Admin Trade Name Freq PRN Reason Stop Dose Admin Sodium Chloride 10 ml 02/17/21 20:00 Sodium Chloride 0.9% 10 Ml Syringe FLUSH Q8HR PRN keep vein open Discontinued Medications Generic Name Dose Route Start Last Admin Trade Name Laura PRN Reason Stop Dose Admin Potassium Chloride 40 meq 02/17/21 21:54 02/17/21 22:08 Potassium Chloride 20 Meq Tab.Er PO 02/17/21 21:55 40 meq ONETIME ONE Administration - Re-Assessments/Exams Free Text/Narrative Re-Assessment/Exam: 02/18/21 00:05 Patrick's weakness progressed throughout his stay and with activity. Or he was once able to assist himself by the time his and friend arrived for his discharge was not able to get up from wheelchair with the aid of a walker to ambulate. Decision at that time for admission due to findings Departure - Departure Time of Disposition: 22:13 Disposition: Home, Self-Care 01 Condition: Good Clinical Impression: Hypokalemia, Hypoalbuminemia, Elevated bilirubin Edema Qualifiers: Edema type: unspecified Qualified Code(s): R60.9 - Edema, unspecified - Discharge Information *PRESCRIPTION DRUG MONITORING PROGRAM REVIEWED*: Not Applicable *COPY OF PRESCRIPTION DRUG MONITORING REPORT IN PATIENT SELVIN: Not Applicable Instructions: Edema, Hypokalemia, Edema, [id number] Forms: ED Department Discharge Additional Instructions: Admit to hospital per Dr Naranjo Sepsis Event Note (ED) - Evaluation Sepsis Screening Result: No Definite Risk - Focused Exam Vital Signs: Vital Signs Temp Pulse Resp BP Pulse Ox 02/17/21 21:50 90 20 148/82 H 95 02/17/21 20:35 87 20 117/59 L 94 L 02/17/21 20:15 89 21 H 125/98 H 02/17/21 20:00 92 20 147/75 H 90 L 02/17/21 19:51 98.1 F 95 19 102/64 94 L ED Communication - ED Communication Date/Time Date: 02/17/21 Time Called: 23:15 - Discussed Case With (1) Discussed Case With (1): Admitting Provider Person/s Notified (1): Kassy Naranjo-Lamar - Problem List & Annotations (1) Hypokalemia SNOMED Code(s): 25503320 Code(s): E87.6 - HYPOKALEMIA Status: Acute Priority: High (2) Hypoalbuminemia SNOMED Code(s): 682682556 Code(s): E88.09 - OTH DISORDERS OF PLASMA-PROTEIN METABOLISM, NEC Status: Acute Priority: High (3) Elevated bilirubin SNOMED Code(s): 01443241 Code(s): R17 - UNSPECIFIED JAUNDICE Status: Acute Priority: High (4) Edema SNOMED Code(s): 655496973, 345348849 Code(s): R60.9 - EDEMA, UNSPECIFIED Status: Acute Priority: High Qualifiers: Edema type: unspecified Qualified Code(s): R60.9 - Edema, unspecified (5) Generalized weakness SNOMED Code(s): 93926129 Code(s): R53.1 - WEAKNESS Status: Chronic Priority: Medium (6) COVID-19 ruled out by laboratory testing SNOMED Code(s): 383947451701073116, 808767727141121196 Code(s): Z20.822 - CONTACT WITH AND (SUSPECTED) EXPOSURE TO COVID-19 Status: Acute - Problem List Review Problem List Initiated/Reviewed/Updated: Yes - My Orders Last 24 Hours: My Active Orders 02/17/21 20:00 Sodium Chloride 0.9% [Saline Flush] 10 ml FLUSH Q8HR PRN Blood Culture x2 Reflex Set [OM.PC] Stat Peripheral IV Insertion Adult [OM.PC] Stat EKG 12 Lead [EK] Stat 02/17/21 20:01 Peripheral IV Care [RC] . DIRECTED CULTURE BLOOD [BC] Stat CULTURE BLOOD [BC] Stat 02/17/21 23:32 Patient Status [ADT] Routine - Assessment/Plan Admission H&P: Please use this note as an admission H&P Last 24 Hours: My Active Orders 02/17/21 20:00 Sodium Chloride 0.9% [Saline Flush] 10 ml FLUSH Q8HR PRN Blood Culture x2 Reflex Set [OM.PC] Stat Peripheral IV Insertion Adult [OM.PC] Stat EKG 12 Lead [EK] Stat 02/17/21 20:01 Peripheral IV Care [RC] . DIRECTED CULTURE BLOOD [BC] Stat CULTURE BLOOD [BC] Stat 02/17/21 23:32 Patient Status [ADT] Routine Plan: Admit to hospital per Dr Naranjo
[2021-02-17 20:40] LABS: ANION GAP 12.9 mmol/L (5-15); CHLORIDE,CL 96 mmol/L (98-107); SODIUM,NA 137 mmol/L (136-145)
--- NOTE | 2021-02-17 20:57 | CR ---
[id number] RAD/RAD Chest PA or AP 1V EXAM: RAD Chest PA or AP 1V INDICATION: EDEMA COMPARISON: April 2020. DISCUSSION/IMPRESSION: Cardiomediastinal silhouette is normal in size and contour. Lungs are clear. No pleural effusion or pneumothorax. Juanito Henao MD 02/17/212055 Thank you for allowing us to participate in the care of your patient.
[2021-02-17] MEDS ORDERED: Potassium Chloride 20 MEQ Tab.ER PO ONE (21:54)
[2021-02-18] MEDS: Acetaminophen 325 MG Tab PO PRN ×3 (02:36→23:14)
[2021-02-18 08:18] LABS: ANION GAP 10.9 mmol/L (5-15); CHLORIDE,CL 96 mmol/L (98-107); SODIUM,NA 137 mmol/L (136-145)
[2021-02-18] MEDS ORDERED: traMADol 50 MG Tab PO PRN (08:56)
--- NOTE | 2021-02-18 10:31 | US ---
[id number] US/US Abdomen Limited EXAM: US Abdomen Limited INDICATION: RISING BILIRUBIN COMPARISON: September 10, 2020 CT. DISCUSSION: The liver is normal in size and texture. No intrahepatic duct dilation. Common hepatic duct measures 4.2 mm. Gallbladder is surgically absent. No free fluid. IMPRESSION: 1. Negative liver ultrasound. Andrew James MD 02/18/21 1119 Thank you for allowing us to participate in the care of your patient.
[2021-02-18] MEDS ORDERED: PROMETHAZINE 25 MG PO PRN (10:49)
[2021-02-18] MEDS: Triamcinolone Acetonide 0.1% Oint 15 GM Tube TOP SCH ×2 (11:04→20:30)
[2021-02-18] MEDS: Apixaban 5 MG Tab PO SCH ×2 (11:04→20:29)
[2021-02-18] MEDS: Fish Oil/Omega-3 Fatty Acids 1 Gm Cap PO SCH (11:04)
--- NOTE | 2021-02-18 11:15 | PCM.PN ---
- General Info Date of Service: 02/18/21 Admission Dx/Problem (Free Text): Weakness, inability to care for self at home due to weakness - Review of Systems Systems Review Comment:: Patrick was admitted through the ER on 02/17 after presenting by private vehicle for diffuse pain, which had improved at the time he was in the ER, but he had slid OOB at home and was unable to get up. His is not able to lift him if he falls but somehow managed to get him up and bring him to the ER. In the ER he was noted to have an elevated bilirubin at 2.8 which was higher than on labs 2 days previous with it was 1.2. He had swelling in his hands and his legs and was weak, unable to ambulate safely independently. Decision was made to admit for strengthening and pain control. 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 He has been receiving Keytruda every 3 weeks. 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 After his 3rd chemo session he had worsening whole body pain felt to be a neuropathy related to his chemotherapy and so his gabapentin was increased to 900 mg PO BID. Minor improvement. He then presented to the clinic on 02/02 with worsening pain and so gabapentin was increased to 900 mg PO TID. He presented again on 02/16 with 10/10 diffuse pain stating "If I keep going on like this I'll be in the NH". He was started on tramadol 50 mg PO q 6 hours PRN which only offered minimal relief. It was noted on 02/16 his hands and feet were swollen. He stated "they get like this when my nerve pain flares up". He contacted the clinic on 02/17 with pain complaints and so hydrocodone 10/325 was added to his regimen alternating with Tylenol and he was instructed to not take the gabapentin in the event that was causing his swelling. Unfortunately as noted above he slid OOB and was weak and so presented to the ER. This morning when I see him he states "I'm not great, but I'm a whole heck of a lot better than I was yesterday". Pain at rest is a 2/10 and with "sudden jerking movements is a 6/10". He is weak. He feels all of this symptoms are related to the gabapentin as he states since he has not been taking that he feels much better over the last 18 hours. Bilirubin was up again today at 3 but no other LFT abnormalities. Hepatic U/S was obtained today and is negative. - Patient Data Vitals - Most Recent: Last Vital Signs Temp 97.7 F 02/18/21 06:50 Pulse 96 02/18/21 06:50 Resp 18 02/18/21 06:50 BP 107/84 02/18/21 06:50 Pulse Ox 92 L 02/18/21 06:50 Weight - Most Recent: 297 lb 5 oz I&O - Last 24 Hours: Intake & Output 02/17/21 02/18/21 02/18/21 22:59 06:59 14:59 Intake Total 0 Output Total 200 Balance -200 Lab Results Last 24 Hours: Laboratory Results - last 24 hr 02/17/21 02/17/21 02/17/21 Range/Units 20:00 20:00 20:00 WBC 10.89 H (5.00-10.00) 10^3/uL RBC 4.50 (4.50-6.00) 10^6/uL Hgb 13.0 (13.0-17.0) g/dL Hct 41.0 (40.0-52.0) % MCV 91.1 (82.0-92.0) fL MCH 28.9 (27.0-31.0) pg MCHC 31.7 L (32.0-36.0) g/dL RDW 13.7 (11.5-14.5) % Plt Count 251 (150-400) 10^3/uL MPV 9.3 (7.4-10.4) fL Immature Gran % (Auto) 0.2 (0.0-5.0) % Neut % (Auto) 84.9 H (50.0-70.0) % Lymph % (Auto) 6.1 L (20.0-40.0) % [place] % (Auto) 8.4 H (2.0-8.0) % Eos % (Auto) 0.2 L (1.0-3.0) % Baso % (Auto) 0.2 (0.0-1.0) % Neut # (Auto) 9.26 H (2.50-7.00) 10^3/uL Lymph # (Auto) 0.66 L (1.00-4.00) 10^3/uL [place] # (Auto) 0.91 H (0.10-0.80) 10^3/uL Eos # (Auto) 0.02 L (0.10-0.30) 10^3/uL Baso # (Auto) 0.02 (0.00-0.10) 10^3/uL Immature Gran # (Auto) 0.02 (0.00-0.50) 10^3/uL Sodium 137 (136-145) mmol/L Potassium 2.7 L (3.5-5.1) mmol/L Chloride 96 L (98-107) mmol/L Carbon Dioxide 30.8 (21.0-32.0) mmol/L Anion Gap 12.9 (5-15) mmol/L BUN 16 (7-18) mg/dL Creatinine 0.67 (0.51-1.17) mg/dL Est Cr Clr Drug Dosing 89.28 mL/min Estimated GFR (MDRD) > 60 mL/min Glucose 127 (70-140) mg/dL Lactic Acid 1.5 (0.4-2.0) mmol/L Calcium 9.0 (8.7-10.3) mg/dL Total Bilirubin 2.8 H (0.2-1.0) mg/dL AST 22 (15-37) U/L ALT 19 (14-63) U/L Alkaline Phosphatase 98 (46-116) U/L Creatine Kinase 190 (26-276) U/L Troponin I High Sens 18.500 (0-76.000) pg/mL B-Natriuretic Peptide 430 H (0-100) pg/mL Total Protein 7.1 (6.4-8.2) g/dL Albumin 2.82 L (3.40-5.00) g/dL SARS-CoV-2 RNA (FRANK) (NEGATIVE) 02/17/21 02/18/21 02/18/21 Range/Units 20:32 00:00 07:35 WBC 9.91 (5.00-10.00) 10^3/uL RBC 4.34 L (4.50-6.00) 10^6/uL Hgb 12.7 L (13.0-17.0) g/dL Hct 39.6 L (40.0-52.0) % MCV 91.2 (82.0-92.0) fL MCH 29.3 (27.0-31.0) pg MCHC 32.1 (32.0-36.0) g/dL RDW 13.6 (11.5-14.5) % Plt Count 252 (150-400) 10^3/uL MPV 9.3 (7.4-10.4) fL Immature Gran % (Auto) 0.3 (0.0-5.0) % Neut % (Auto) 82.9 H (50.0-70.0) % Lymph % (Auto) 6.7 L (20.0-40.0) % [place] % (Auto) 9.4 H (2.0-8.0) % Eos % (Auto) 0.4 L (1.0-3.0) % Baso % (Auto) 0.3 (0.0-1.0) % Neut # (Auto) 8.22 H (2.50-7.00) 10^3/uL Lymph # (Auto) 0.66 L (1.00-4.00) 10^3/uL [place] # (Auto) 0.93 H (0.10-0.80) 10^3/uL Eos # (Auto) 0.04 L (0.10-0.30) 10^3/uL Baso # (Auto) 0.03 (0.00-0.10) 10^3/uL Immature Gran # (Auto) 0.03 (0.00-0.50) 10^3/uL Sodium 137 (136-145) mmol/L Potassium 2.9 L (3.5-5.1) mmol/L Chloride 96 L (98-107) mmol/L Carbon Dioxide 33.0 H (21.0-32.0) mmol/L Anion Gap 10.9 (5-15) mmol/L BUN 17 (7-18) mg/dL Creatinine 0.63 (0.51-1.17) mg/dL Est Cr Clr Drug Dosing 94.95 mL/min Estimated GFR (MDRD) > 60 mL/min Glucose 132 (70-140) mg/dL Lactic Acid (0.4-2.0) mmol/L Calcium 9.0 (8.7-10.3) mg/dL Total Bilirubin 3.0 H (0.2-1.0) mg/dL AST 28 (15-37) U/L ALT 21 (14-63) U/L Alkaline Phosphatase 96 (46-116) U/L Creatine Kinase (26-276) U/L Troponin I High Sens (0-76.000) pg/mL B-Natriuretic Peptide (0-100) pg/mL Total Protein 7.3 (6.4-8.2) g/dL Albumin 2.73 L (3.40-5.00) g/dL SARS-CoV-2 RNA (FRANK) Negative (NEGATIVE) Med Orders - Current: Current Medications Acetaminophen (Acetaminophen 325 Mg Tab) 650 mg PO Q4H PRN PRN Reason: Pain (Mild 1-3)/fever Last Admin: 02/18/21 02:36 Dose: 650 mg Documented by: Acetaminophen (Acetaminophen 650 Mg Tab.Er) 650 mg PO DAILY [facility] Hydrocodone Bitart/Acetaminophen (Acetaminophen/Hydrocodone 325-10 Mg Tab) 1 tab PO Q6HR PRN PRN Reason: Pain Apixaban (Apixaban 5 Mg Tab) 5 mg PO BID [facility] Last Admin: 02/18/21 11:04 Dose: 5 mg Documented by: Diclofenac Sodium (Diclofenac Sodium 1% Gel 100 Gm Tube) 0 gm TOP BID PRN PRN Reason: Pain Fish Oil (Fish Oil/Germfask-3 Fatty Acids 1 Gm Cap) 1 gm PO DAILY [facility] Last Admin: 02/18/21 11:04 Dose: 1 gm Documented by: Multivitamins/Minerals (Multivitamins With Minerals/Iron/Folic Acid/Lycopene Tab) 1 tab PO DAILY [facility] Multivitamins/Minerals (Multivitamins With Minerals/Iron/Folic Acid/Lycopene Tab) 1 tab PO DAILY [facility] Ptom-Otezla 30 Mg (Tablet) 1 each PO BID [facility] Ptom- Vitamin D 50, (000 Units Capsule) 1 each PO MO [facility] Ptom- Promethazine (25 Mg Tablet) 1 each PO Q6H PRN PRN Reason: Nausea Potassium Chloride (Potassium Chloride 10 Meq Tab.Er) 40 meq PO WITHBREAKFAST [facility] Sodium Chloride (Sodium Chloride 0.9% 10 Ml Syringe) 10 ml FLUSH Q8HR PRN PRN Reason: keep vein open Tramadol HCl (Tramadol 50 Mg Tab) 50 mg PO Q6H PRN PRN Reason: Nausea Triamcinolone Acetonide (Triamcinolone Acetonide 0.1% Oint 15 Gm Tube) 0 gm TOP BID ISIDRO Last Admin: 02/18/21 11:04 Dose: 1 applic Documented by: Discontinued Medications Potassium Chloride (Potassium Chloride 20 Meq Tab.Er) 40 meq PO ONETIME ONE Stop: 02/17/21 21:55 Last Admin: 02/17/21 22:08 Dose: 40 meq Documented by: - Exam General: Alert, Oriented, Cooperative, No Acute Distress Lungs: Clear to Auscultation, Normal Respiratory Effort Cardiovascular: Regular Rate, Regular Rhythm, No Murmurs GI/Abdominal Exam: Normal Bowel Sounds Skin: Other (Psoriatic plaques on his legs. Hands are swollen bilaterally. Very superficial skin breakdown just above the buttocks crease.) - Patient Data Lab Results Last 24 hrs: Laboratory Results - last 24 hr 02/17/21 02/17/21 02/17/21 Range/Units 20:00 20:00 20:00 WBC 10.89 H (5.00-10.00) 10^3/uL RBC 4.50 (4.50-6.00) 10^6/uL Hgb 13.0 (13.0-17.0) g/dL Hct 41.0 (40.0-52.0) % MCV 91.1 (82.0-92.0) fL MCH 28.9 (27.0-31.0) pg MCHC 31.7 L (32.0-36.0) g/dL RDW 13.7 (11.5-14.5) % Plt Count 251 (150-400) 10^3/uL MPV 9.3 (7.4-10.4) fL Immature Gran % (Auto) 0.2 (0.0-5.0) % Neut % (Auto) 84.9 H (50.0-70.0) % Lymph % (Auto) 6.1 L (20.0-40.0) % [place] % (Auto) 8.4 H (2.0-8.0) % Eos % (Auto) 0.2 L (1.0-3.0) % Baso % (Auto) 0.2 (0.0-1.0) % Neut # (Auto) 9.26 H (2.50-7.00) 10^3/uL Lymph # (Auto) 0.66 L (1.00-4.00) 10^3/uL [place] # (Auto) 0.91 H (0.10-0.80) 10^3/uL Eos # (Auto) 0.02 L (0.10-0.30) 10^3/uL Baso # (Auto) 0.02 (0.00-0.10) 10^3/uL Immature Gran # (Auto) 0.02 (0.00-0.50) 10^3/uL Sodium 137 (136-145) mmol/L Potassium 2.7 L (3.5-5.1) mmol/L Chloride 96 L (98-107) mmol/L Carbon Dioxide 30.8 (21.0-32.0) mmol/L Anion Gap 12.9 (5-15) mmol/L BUN 16 (7-18) mg/dL Creatinine 0.67 (0.51-1.17) mg/dL Est Cr Clr Drug Dosing 89.28 mL/min Estimated GFR (MDRD) > 60 mL/min Glucose 127 (70-140) mg/dL Lactic Acid 1.5 (0.4-2.0) mmol/L Calcium 9.0 (8.7-10.3) mg/dL Total Bilirubin 2.8 H (0.2-1.0) mg/dL AST 22 (15-37) U/L ALT 19 (14-63) U/L Alkaline Phosphatase 98 (46-116) U/L Creatine Kinase 190 (26-276) U/L Troponin I High Sens 18.500 (0-76.000) pg/mL B-Natriuretic Peptide 430 H (0-100) pg/mL Total Protein 7.1 (6.4-8.2) g/dL Albumin 2.82 L (3.40-5.00) g/dL SARS-CoV-2 RNA (FRANK) (NEGATIVE) 02/17/21 02/18/21 02/18/21 Range/Units 20:32 00:00 07:35 WBC 9.91 (5.00-10.00) 10^3/uL RBC 4.34 L (4.50-6.00) 10^6/uL Hgb 12.7 L (13.0-17.0) g/dL Hct 39.6 L (40.0-52.0) % MCV 91.2 (82.0-92.0) fL MCH 29.3 (27.0-31.0) pg MCHC 32.1 (32.0-36.0) g/dL RDW 13.6 (11.5-14.5) % Plt Count 252 (150-400) 10^3/uL MPV 9.3 (7.4-10.4) fL Immature Gran % (Auto) 0.3 (0.0-5.0) % Neut % (Auto) 82.9 H (50.0-70.0) % Lymph % (Auto) 6.7 L (20.0-40.0) % [place] % (Auto) 9.4 H (2.0-8.0) % Eos % (Auto) 0.4 L (1.0-3.0) % Baso % (Auto) 0.3 (0.0-1.0) % Neut # (Auto) 8.22 H (2.50-7.00) 10^3/uL Lymph # (Auto) 0.66 L (1.00-4.00) 10^3/uL [place] # (Auto) 0.93 H (0.10-0.80) 10^3/uL Eos # (Auto) 0.04 L (0.10-0.30) 10^3/uL Baso # (Auto) 0.03 (0.00-0.10) 10^3/uL Immature Gran # (Auto) 0.03 (0.00-0.50) 10^3/uL Sodium 137 (136-145) mmol/L Potassium 2.9 L (3.5-5.1) mmol/L Chloride 96 L (98-107) mmol/L Carbon Dioxide 33.0 H (21.0-32.0) mmol/L Anion Gap 10.9 (5-15) mmol/L BUN 17 (7-18) mg/dL Creatinine 0.63 (0.51-1.17) mg/dL Est Cr Clr Drug Dosing 94.95 mL/min Estimated GFR (MDRD) > 60 mL/min Glucose 132 (70-140) mg/dL Lactic Acid (0.4-2.0) mmol/L Calcium 9.0 (8.7-10.3) mg/dL Total Bilirubin 3.0 H (0.2-1.0) mg/dL AST 28 (15-37) U/L ALT 21 (14-63) U/L Alkaline Phosphatase 96 (46-116) U/L Creatine Kinase (26-276) U/L Troponin I High Sens (0-76.000) pg/mL B-Natriuretic Peptide (0-100) pg/mL Total Protein 7.3 (6.4-8.2) g/dL Albumin 2.73 L (3.40-5.00) g/dL SARS-CoV-2 RNA (FRANK) Negative (NEGATIVE) Result Diagrams: 02/18/21 00:00 02/18/21 07:35 Sepsis Event Note - Evaluation Sepsis Screening Result: No Definite Risk - Focused Exam Vital Signs: Vital Signs Temp Temp Pulse Resp BP Pulse Ox Pulse Ox 02/18/21 06:50 97.7 F 96 18 107/84 92 L 02/18/21 03:06 99 F 02/18/21 02:43 100.2 F 101 H 20 134/68 92 L 02/18/21 02:36 100.5 F 02/18/21 00:00 98.7 F 104 H 18 132/73 92 L 92 L - Problem List Review Problem List Initiated/Reviewed/Updated: Yes - My Orders Last 24 Hours: My Active Orders 02/18/21 08:56 Diclofenac Sodium [Voltaren 1% Gel] 0 gm TOP BID PRN traMADol [Ultram] 50 mg PO Q6H PRN 02/18/21 09:00 Apixaban [Eliquis] 5 mg PO BID Fish Oil/Germfask-3 Fatty Acids [Fish Oil] 1 gm PO DAILY Triamcinolone Acetonide [Triamcinolone Acetonide 0.1% Oint] 0 gm TOP BID 02/18/21 10:45 Acetaminophen/HYDROcodone [[place] 325-10 MG] 1 tab PO Q6HR PRN 02/18/21 10:49 Patient's Own Medication [Ptom] 1 each PO Q6H PRN 02/18/21 21:00 Patient's Own Medication [Ptom] 1 each PO BID 02/19/21 05:11 CBC WITH AUTO DIFF [HEME] AM CMP [COMPREHENSIVE METABOLIC PN,CMP] [CHEM] AM 11/18/21 08:00 Potassium Chloride [Klor-Con 10] 40 meq PO WITHBREAKFAST 02/19/21 09:00 Acetaminophen [Tylenol Arthritis Pain] 650 mg PO DAILY FA/Lycopene/Lut/MV,Ca,Iron,Min [Centrum] 1 tab PO DAILY FA/Lycopene/Lut/MV,Ca,Iron,Min [Centrum] 1 tab PO DAILY 02/20/21 05:11 CBC WITH AUTO DIFF [HEME] AM CMP [COMPREHENSIVE METABOLIC PN,CMP] [CHEM] AM 02/21/21 05:11 CBC WITH AUTO DIFF [HEME] AM CMP [COMPREHENSIVE METABOLIC PN,CMP] [CHEM] AM 02/22/21 05:11 CBC WITH AUTO DIFF [HEME] AM CMP [COMPREHENSIVE METABOLIC PN,CMP] [CHEM] AM 02/23/21 05:11 CBC WITH AUTO DIFF [HEME] AM CMP [COMPREHENSIVE METABOLIC PN,CMP] [CHEM] AM 02/23/21 10:17 Patient's Own Medication [Ptom] 1 each PO MO - Assessment Assessment:: Admission Diagnoses: Weakness - Up with assistance - Possibly medication related, holding gabapentin - PT consult - If not significant improvement in the next 24 hours will get social director consult to talk about [facility] placement for rehab. Hypokalemia - KCl 40 mEq PO daily (NEW, started 02/18/2021) Pain, unclear etiology -Alternating Tramadol and Hydrocodone - Hold Gabapentin Secondary Diagnoses: Arthritis - Tylenol 650 mg PO daily Hx of Afib, currently in NSR - Eliquis 5 mg PO BID - Hold metoprolol due to recent hx of hypotension Gout - Allopurinol Hyperlipidemia - Atorvastatin 20 mg PO daily Rhona Cell Carcinoma - Raiba as an outpatient per oncology Nausea - Currently no nausea Psoriasis - Otezla BID per dermatology
[2021-02-18] MEDS ORDERED: ONDANSETRON HCL 4 MG PO PRN (11:24)
[2021-02-18] MEDS ORDERED: [UNRECOGNIZED DRUG - OTHER] TOP PRN (12:36)
[2021-02-18] MEDS ORDERED: Potassium Chloride 20 MEQ Tab.ER PO ONE (12:45)
[2021-02-18] MEDS ORDERED: Ondansetron 4 MG Tab.DIS PO PRN (15:00)
[2021-02-18] MEDS: Diclofenac Sodium 1% Gel 100 GM Tube TOP PRN (16:15)
[2021-02-18] MEDS: OTEZLA 30 MG PO SCH (20:29)
[2021-02-18] MEDS ORDERED: Melatonin 3 MG Tab PO PRN (23:04)
[2021-02-18] MEDS ORDERED: Melatonin 3 MG Tab ONE (23:12)
[2021-02-19] MEDS: Acetaminophen/HYDROcodone 325-10 MG Tab PO PRN ×2 (01:07→23:07)
[2021-02-19 07:54] LABS: ANION GAP 11.4 mmol/L (5-15); CHLORIDE,CL 98 mmol/L (98-107); SODIUM,NA 139 mmol/L (136-145)
[2021-02-19] MEDS ORDERED: Potassium Chloride 10 MEQ Tab.ER PO SCH (08:00)
[2021-02-19] MEDS ORDERED: Potassium Chloride 20 MEQ Tab.ER PO SCH (08:00)
[2021-02-19] MEDS: Fish Oil/Omega-3 Fatty Acids 1 Gm Cap PO SCH (08:47)
[2021-02-19] MEDS: Multivitamins with Minerals/Iron/Folic Acid/Lycopene Tab PO SCH (08:48)
[2021-02-19] MEDS: Acetaminophen 650 MG Tab.ER PO SCH (08:48)
[2021-02-19] MEDS: Apixaban 5 MG Tab PO SCH ×2 (08:48→21:13)
[2021-02-19] MEDS: Allopurinol 100 MG Tab PO SCH (08:48)
[2021-02-19] MEDS: Triamcinolone Acetonide 0.1% Oint 15 GM Tube TOP SCH ×2 (08:49→21:14)
[2021-02-19] MEDS: OTEZLA 30 MG PO SCH ×2 (08:50→21:14)
[2021-02-19] MEDS ORDERED: Multivitamins with Minerals/Iron/Folic Acid/Lycopene Tab PO SCH (09:00)
[2021-02-19] MEDS ORDERED: Potassium Chloride 10 MEQ Tab.ER PO ONE (12:10)
--- NOTE | 2021-02-19 12:55 | PCM.PN ---
- General Info Date of Service: 02/19/21 - Patient Data Vitals - Most Recent: Last Vital Signs Temp 97.2 F 02/19/21 11:00 Pulse 91 02/19/21 11:00 Resp 16 02/19/21 11:00 BP 126/62 02/19/21 11:00 Pulse Ox 93 L 02/19/21 11:00 Weight - Most Recent: 297 lb 5 oz I&O - Last 24 Hours: Intake & Output 02/18/21 02/19/21 02/19/21 22:59 06:59 14:59 Intake Total 200 Output Total 50 175 Balance -50 25 Lab Results Last 24 Hours: Laboratory Results - last 24 hr 02/19/21 02/19/21 Range/Units 07:18 07:18 WBC 8.38 (5.00-10.00) 10^3/uL RBC 4.31 L (4.50-6.00) 10^6/uL Hgb 12.5 L (13.0-17.0) g/dL Hct 39.2 L (40.0-52.0) % MCV 91.0 (82.0-92.0) fL MCH 29.0 (27.0-31.0) pg MCHC 31.9 L (32.0-36.0) g/dL RDW 13.6 (11.5-14.5) % Plt Count 235 (150-400) 10^3/uL MPV 9.3 (7.4-10.4) fL Immature Gran % (Auto) 0.2 (0.0-5.0) % Neut % (Auto) 81.5 H (50.0-70.0) % Lymph % (Auto) 7.0 L (20.0-40.0) % [place] % (Auto) 7.0 (2.0-8.0) % Eos % (Auto) 3.9 H (1.0-3.0) % Baso % (Auto) 0.4 (0.0-1.0) % Neut # (Auto) 6.82 (2.50-7.00) 10^3/uL Lymph # (Auto) 0.59 L (1.00-4.00) 10^3/uL [place] # (Auto) 0.59 (0.10-0.80) 10^3/uL Eos # (Auto) 0.33 H (0.10-0.30) 10^3/uL Baso # (Auto) 0.03 (0.00-0.10) 10^3/uL Immature Gran # (Auto) 0.02 (0.00-0.50) 10^3/uL Sodium 139 (136-145) mmol/L Potassium 3.0 L (3.5-5.1) mmol/L Chloride 98 (98-107) mmol/L Carbon Dioxide 32.6 H (21.0-32.0) mmol/L Anion Gap 11.4 (5-15) mmol/L BUN 17 (7-18) mg/dL Creatinine 0.59 (0.51-1.17) mg/dL Est Cr Clr Drug Dosing 101.39 mL/min Estimated GFR (MDRD) > 60 mL/min Glucose 120 (70-140) mg/dL Calcium 9.0 (8.7-10.3) mg/dL Total Bilirubin 1.7 H (0.2-1.0) mg/dL AST 37 (15-37) U/L ALT 24 (14-63) U/L Alkaline Phosphatase 90 (46-116) U/L Total Protein 6.8 (6.4-8.2) g/dL Albumin 2.53 L (3.40-5.00) g/dL Med Orders - Current: Current Medications Acetaminophen (Acetaminophen 325 Mg Tab) 650 mg PO Q4H PRN PRN Reason: Pain (Mild 1-3)/fever Last Admin: 02/18/21 23:14 Dose: 650 mg Documented by: Acetaminophen (Acetaminophen 650 Mg Tab.Er) 650 mg PO DAILY [facility] Last Admin: 02/19/21 08:48 Dose: 650 mg Documented by: Hydrocodone Bitart/Acetaminophen (Acetaminophen/Hydrocodone 325-10 Mg Tab) 1 tab PO Q6HR PRN PRN Reason: Pain Last Admin: 02/19/21 01:07 Dose: 1 tab Documented by: Allopurinol (Allopurinol 100 Mg Tab) 100 mg PO DAILY [facility] Last Admin: 02/19/21 08:48 Dose: 100 mg Documented by: Apixaban (Apixaban 5 Mg Tab) 5 mg PO BID [facility] Last Admin: 02/19/21 08:48 Dose: 5 mg Documented by: Atorvastatin Calcium (Atorvastatin 10 Mg Tab) 20 mg PO DAILY [facility] Last Admin: 02/19/21 08:48 Dose: 20 mg Documented by: Diclofenac Sodium (Diclofenac Sodium 1% Gel 100 Gm Tube) 0 gm TOP BID PRN PRN Reason: Pain Last Admin: 02/18/21 16:15 Dose: 1 applic Documented by: Fish Oil (Fish Oil/[place]-3 Fatty Acids 1 Gm Cap) 1 gm PO DAILY [facility] Last Admin: 02/19/21 08:47 Dose: 1 gm Documented by: Melatonin (Melatonin 3 Mg Tab) 3 mg PO BEDTIME PRN PRN Reason: Sleep Last Admin: 02/18/21 23:14 Dose: 3 mg Documented by: Multivitamins/Minerals (Multivitamins With Minerals/Iron/Folic Acid/Lycopene Tab) 1 tab PO DAILY [facility] Last Admin: 02/19/21 08:48 Dose: 1 tab Documented by: Ondansetron HCl (Ondansetron 4 Mg Tab.Dis) 4 mg PO Q4HR PRN PRN Reason: Nausea Ptom-Otezla 30 Mg (Tablet) 1 each PO BID [facility] Last Admin: 02/19/21 08:50 Dose: 1 each Documented by: Ptom- Vitamin D 50, (000 Units Capsule) 1 each PO MO [facility] Ptom- Promethazine (25 Mg Tablet) 1 each PO Q6H PRN PRN Reason: Nausea Ptom- Conroy Sorrento 1 each TOP DAILY PRN PRN Reason: affected areas, psoriasis Potassium Chloride (Potassium Chloride 20 Meq Tab.Er) 40 meq PO WITHBREAKFAST [facility] Last Admin: 02/19/21 08:47 Dose: 40 meq Documented by: Sodium Chloride (Sodium Chloride 0.9% 10 Ml Syringe) 10 ml FLUSH Q8HR PRN PRN Reason: keep vein open Tramadol HCl (Tramadol 50 Mg Tab) 50 mg PO Q6H PRN PRN Reason: Nausea Triamcinolone Acetonide (Triamcinolone Acetonide 0.1% Oint 15 Gm Tube) 0 gm TOP BID [facility] Last Admin: 02/19/21 08:49 Dose: 1 applic Documented by: Discontinued Medications Melatonin (Melatonin 3 Mg Tab) Confirm Administered Dose 3 mg .ROUTE .STK-MED ONE Stop: 02/18/21 23:13 Last Admin: 02/19/21 01:11 Dose: Not Given Documented by: Multivitamins/Minerals (Multivitamins With Minerals/Iron/Folic Acid/Lycopene Tab) 1 tab PO DAILY [facility] Potassium Chloride (Potassium Chloride 20 Meq Tab.Er) 40 meq PO ONETIME ONE Stop: 02/17/21 21:55 Last Admin: 02/17/21 22:08 Dose: 40 meq Documented by: Potassium Chloride (Potassium Chloride 10 Meq Tab.Er) 40 meq PO WITHBREAKFAST ISIDRO Potassium Chloride (Potassium Chloride 20 Meq Tab.Er) 40 meq PO ONETIME ONE Stop: 02/18/21 12:46 Last Admin: 02/18/21 12:40 Dose: 40 meq Documented by: - Exam Quality Assessment: DVT Prophylaxis (eliquis). No: Supplemental Oxygen General: Alert, Oriented, No Acute Distress Neck: No JVD Lungs: Clear to Auscultation, Normal Respiratory Effort Cardiovascular: Regular Rate, Regular Rhythm GI/Abdominal Exam: Normal Bowel Sounds Back Exam: No: CVA Tenderness (L), CVA Tenderness (R) Extremities: Other (non pitting edema, feet, Left hand and milder on right hand ) Skin: Rash (Psoriatic rash lumbar region large area) Neurological: Normal Speech, Normal Tone, Cranial Nerves Intact Psy/Mental Status: Alert, Normal Affect, Normal Mood - Patient Data Lab Results Last 24 hrs: Laboratory Results - last 24 hr 02/19/21 02/19/21 Range/Units 07:18 07:18 WBC 8.38 (5.00-10.00) 10^3/uL RBC 4.31 L (4.50-6.00) 10^6/uL Hgb 12.5 L (13.0-17.0) g/dL Hct 39.2 L (40.0-52.0) % MCV 91.0 (82.0-92.0) fL MCH 29.0 (27.0-31.0) pg MCHC 31.9 L (32.0-36.0) g/dL RDW 13.6 (11.5-14.5) % Plt Count 235 (150-400) 10^3/uL MPV 9.3 (7.4-10.4) fL Immature Gran % (Auto) 0.2 (0.0-5.0) % Neut % (Auto) 81.5 H (50.0-70.0) % Lymph % (Auto) 7.0 L (20.0-40.0) % [place] % (Auto) 7.0 (2.0-8.0) % Eos % (Auto) 3.9 H (1.0-3.0) % Baso % (Auto) 0.4 (0.0-1.0) % Neut # (Auto) 6.82 (2.50-7.00) 10^3/uL Lymph # (Auto) 0.59 L (1.00-4.00) 10^3/uL [place] # (Auto) 0.59 (0.10-0.80) 10^3/uL Eos # (Auto) 0.33 H (0.10-0.30) 10^3/uL Baso # (Auto) 0.03 (0.00-0.10) 10^3/uL Immature Gran # (Auto) 0.02 (0.00-0.50) 10^3/uL Sodium 139 (136-145) mmol/L Potassium 3.0 L (3.5-5.1) mmol/L Chloride 98 (98-107) mmol/L Carbon Dioxide 32.6 H (21.0-32.0) mmol/L Anion Gap 11.4 (5-15) mmol/L BUN 17 (7-18) mg/dL Creatinine 0.59 (0.51-1.17) mg/dL Est Cr Clr Drug Dosing 101.39 mL/min Estimated GFR (MDRD) > 60 mL/min Glucose 120 (70-140) mg/dL Calcium 9.0 (8.7-10.3) mg/dL Total Bilirubin 1.7 H (0.2-1.0) mg/dL AST 37 (15-37) U/L ALT 24 (14-63) U/L Alkaline Phosphatase 90 (46-116) U/L Total Protein 6.8 (6.4-8.2) g/dL Albumin 2.53 L (3.40-5.00) g/dL Result Diagrams: 02/19/21 07:18 02/19/21 07:18 Sepsis Event Note - Evaluation Sepsis Screening Result: No Definite Risk - Focused Exam Vital Signs: Vital Signs Temp Pulse Resp BP BP Pulse Ox 02/19/21 11:00 97.2 F 91 16 126/62 93 L 11/18/21 06:49 96.7 F L 84 20 144/76 H 95 02/19/21 02:28 96.9 F 84 20 112/65 93 L - Problem List Review Problem List Initiated/Reviewed/Updated: Yes - Plan Plan:: History summary Patrick was admitted through the ER on 02/17 after presenting by private vehicle for diffuse pain, which had improved at the time he was in the ER, but he had slid OOB at home and was unable to get up. His is not able to lift him if he falls but somehow managed to get him up and bring him to the ER. In the ER he was noted to have an elevated bilirubin at 2.8 which was higher than on labs 2 days previous with it was 1.2. He had swelling in his hands and his legs and was weak, unable to ambulate safely independently. Decision was made to admit for strengthening and pain control. 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 He has been receiving Keytruda every 3 weeks. 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 After his 3rd chemo session he had worsening whole body pain felt to be a neuropathy related to his chemotherapy and so his gabapentin was increased to 900 mg PO BID. Minor improvement. He then presented to the clinic on 02/02 with worsening pain and so gabapentin was increased to 900 mg PO TID. He presented again on 02/16 with 10/10 diffuse pain stating "If I keep going on like this I'll be in the NH". He was started on tramadol 50 mg PO q 6 hours PRN which only offered minimal relief. It was noted on 02/16 his hands and feet were swollen. He stated "they get like this when my nerve pain flares up". He contacted the clinic on 02/17 with pain complaints and so hydrocodone 10/ was added to his regimen alternating with Tylenol and he was instructed to not take the gabapentin in the event that was causing his swelling. Unfortunately as noted above he slid OOB and was weak and so presented to the ER. Hospital course 02/18; Dr. Kassy Naranjo states "I'm not great, but I'm a whole heck of a lot better than I was yesterday". Pain at rest is a 2/10 and with "sudden jerking movements is a 6/10". weak. He feels all of this symptoms are related to the gabapentin as he states since he has not been taking that he feels much better over the last 18 hours. Bilirubin was up again today at 3 but no other LFT abnormalities. Hepatic U/S was obtained today and is negative. 02/19; on rounds this morning able to monitor her level of function however still needs quite a bit of assistance however is improving in his lower extremity strength. Patient feeling better however significantly weak. No fever overnight, blood pressure is improving, heart rate normal, potassium slowly improving now at 3.0, doubtful renal loss, T bili improving suspect chemo/Keytruda induced--no abdominal pain, fever, or jaundice. non pitting edema, feet, Left hand and milder on right hand, left hand receding erythremia, no increase in warmth. Lagging indicator albumin decreasing Primary Hospital Problems. Weakness, improving - Up with assistance - Possibly medication related, holding gabapentin - Currently working with PT Hypokalemia, suspect d/t Keyturda, improving - Increase to KCl 40 mEq PO BID (during acute stay) (NEW, started 02/18/2021) Pain, unclear etiology, MUCH improved. -Alternating Tramadol and Hydrocodone -Holding Gabapentin Protein malnutrition, added protein supplementation Secondary Diagnoses: Arthritis - Tylenol 650 mg PO daily Hx of Afib, currently in NSR - Eliquis 5 mg PO BID - Holding metoprolol due to recent hx of hypotension, parameters to restart Gout - Allopurinol Hyperlipidemia - Atorvastatin 20 mg PO daily Rhona Cell Carcinoma - Keytruda as an outpatient per oncology Nausea - Currently no nausea Psoriasis - Otezla BID per dermatology FEN; p.o. fluids, p.o. potassium supplementation, low-sodium diet, Code status, DNR, POLST signed and on file. DVT prophylaxis, cross covered on factor Xa inhibitor Disposition/overall plan --Physcial Therapy --Increase KCl 40 mEq PO BID (during acute stay) --Gradient pressure wraps bilateral lower extremities and LUE, Ask to order Tubigrip fur future clinic/hospital dual use. (see [facility] for sizes before ordering) --Restart metoprolol if SBP greater than 140 DBP greater than 90 OR HR >100 --Out of bed most of day --Elevate LUE --Reinforce ankle pumps to patient as taught --Sleep hygiene, discussed with RN and patient, changed to Radha. --Protein malnutrition, protein supplementation --Anticipate swing bed placement in am. SS C/S
[2021-02-19] MEDS: Diclofenac Sodium 1% Gel 100 GM Tube TOP PRN ×2 (13:31→21:14)
[2021-02-19] MEDS: Potassium Chloride 20 MEQ Tab.ER PO SCH ×2 (16:56→21:12)
[2021-02-19] MEDS ORDERED: Docusate Sodium 100 MG Cap PO PRN (19:39)
[2021-02-20] MEDS ORDERED: LORazepam 0.5 MG Tab PO ONE (01:45)
[2021-02-20 05:21] VITALS: BP 125/80; PULSE 86
[2021-02-20 07:45] LABS: CHLORIDE,CL 101 mmol/L (98-107)
[2021-02-20 07:58] LABS: ANION GAP 13.9 mmol/L (5-15); SODIUM,NA 140 mmol/L (136-145)
[2021-02-20] MEDS: Acetaminophen 650 MG Tab.ER PO SCH (08:47)
[2021-02-20] MEDS: Apixaban 5 MG Tab PO SCH (08:47)
[2021-02-20] MEDS: Fish Oil/Omega-3 Fatty Acids 1 Gm Cap PO SCH (08:47)
[2021-02-20] MEDS: Multivitamins with Minerals/Iron/Folic Acid/Lycopene Tab PO SCH (08:48)
[2021-02-20] MEDS: Allopurinol 100 MG Tab PO SCH (08:48)
[2021-02-20] MEDS: Potassium Chloride 20 MEQ Tab.ER PO SCH (08:49)
[2021-02-20] MEDS: Triamcinolone Acetonide 0.1% Oint 15 GM Tube TOP SCH (09:10)
[2021-02-20] MEDS: OTEZLA 30 MG PO SCH (09:10)
[2021-02-23] MEDS ORDERED: VITAMIN D 50000 UNIT PO SCH (10:17)
== END 2021-02-20 11:50 | disposition swing bed (61) | DRG 948 ==
LOC: KA.ED 19:50 → KA.MS 23:32 → KA.ED 02-18 00:30 → KA.MS 02-18 00:32 → UNDOADMIN 02-18 00:32 → UNDODISIN 02-20 11:50
PROVIDERS: ADMIT Internal Medicine; ATTEND Internal Medicine
DX: R53.1 Weakness (principal); R17 Unspecified jaundice; E46 Unspecified protein-calorie malnutrition; Z68.42 Body mass index [BMI] 45.0-49.9, adult; E87.6 Hypokalemia; R52 Pain, unspecified; E88.09 Other disorders of plasma-protein metabolism, not elsewhere classified; Z20.822 Contact with and (suspected) exposure to COVID-19; I48.91 Unspecified atrial fibrillation; R60.9 Edema, unspecified; Z66 Do not resuscitate; K59.09 Other constipation; R32 Unspecified urinary incontinence; K21.9 Gastro-esophageal reflux disease without esophagitis; E66.9 Obesity, unspecified; M10.9 Gout, unspecified; G62.9 Polyneuropathy, unspecified; H54.7 Unspecified visual loss; Z79.01 Long term (current) use of anticoagulants; E78.00 Pure hypercholesterolemia, unspecified; I10 Essential (primary) hypertension; E78.5 Hyperlipidemia, unspecified; T42.6X5A Adverse effect of other antiepileptic and sedative-hypnotic drugs, initial encounter; M19.90 Unspecified osteoarthritis, unspecified site; L40.9 Psoriasis, unspecified; C4A.9 Merkel cell carcinoma, unspecified; Z79.899 Other long term (current) drug therapy; Z87.891 Personal history of nicotine dependence
CPT/HCPCS: 36415; 71045; 76705; 80053; 82550; 83605; 83880; 84484; 85025; 87040; 93005; 93010; 97110-GP; 99285-25; A9270-GY; U0002

== ENCOUNTER 2021-02-20 11:15 | Inpatient (IN) | payer MEDICARE, OTHER ==
[2021-02-20] MEDS ORDERED: Ondansetron 4 MG Tab.DIS PO PRN (11:31)
[2021-02-20] MEDS ORDERED: Docusate Sodium 100 MG Cap PO PRN (11:31)
[2021-02-20] MEDS ORDERED: PROMETHAZINE 25MG TABLET PO PRN (11:31)
[2021-02-20] MEDS ORDERED: Sodium Chloride 0.9% 10 ML Syringe FLUSH PRN (11:31)
--- NOTE | 2021-02-20 11:41 | PCM.HP.2 ---
H&P History of Present Illness - General Date of Service: 02/20/21 Admit Problem/Dx: Admission Diagnosis/Problem Admission Diagnosis/Problem Weakness Source of Information: Patient, Old Records, RN History Limitations: Reports: No Limitations - Related Data Allergies/Adverse Reactions: Allergies Allergy/AdvReac Type Severity Reaction Status Date / Time No Known Drug Allergies Allergy Cannot Verified 03/10/19 07:08 Remember Home Medications: Home Meds Fish Oil/[place]-3 Fatty Acids [Fish Oil 1,000 MG] 1 each PO DAILY 07/16/18 [His tory] Multivitamin [Multi-Vitamin Daily] 1 each PO DAILY 07/16/18 [History] Acetaminophen [Tylenol] 650 mg PO Q6H PRN 03/09/19 [History] Apixaban [Eliquis] 5 mg PO BID 03/09/19 [History] Gabapentin [Neurontin] 900 mg PO TID 03/09/19 [History] Ibuprofen 600 mg PO DAILY 03/09/19 [History] Apremilast [Otezla] 30 mg PO BID 02/17/21 [History] Diclofenac Sodium [Voltaren] 1 applic TP BID PRN 02/17/21 [History] Ergocalciferol (Vitamin D2) [Vitamin D2] 50,000 unit PO MO 02/17/21 [History] Hydrocodone/Acetaminophen [HYDROcodone-Acetaminophen 10-325 MG] 1 each PO Q6H PRN 02/17/21 [History] Promethazine [Phenergan] 25 mg PO Q6H PRN 02/17/21 [History] Triamcinolone Acetonide [Triamcinolone Acetonide 0.1% Oint] 1 applic TOP BID 02/17/21 [History] traMADol [Ultram] 50 mg PO Q6H PRN 02/17/21 [History] Benazepril HCl 20 mg PO DAILY 02/18/21 [History] Calcium Carbonate/Vitamin D3 [Calcium 600-Vit D3 200 Tablet] 1 tab PO DAILY 02/18/21 [History] Cyanocobalamin (Vitamin B-12) [Vitamin B-12] 1,000 mcg PO DAILY 02/18/21 [History] Metoprolol Succinate 50 mg PO DAILY 02/18/21 [History] Pembrolizumab [Keytruda] IV ASDIRECTED 02/18/21 [History] Potassium Chloride 20 mg PO DAILY 02/18/21 [History] Pyrithione Zinc [[place] Formula] 1 spray TOP DAILY PRN 02/18/21 [History] allopurinoL [Zyloprim] 100 mg PO DAILY 02/18/21 [History] atorvaSTATin Calcium [Atorvastatin Calcium] 20 mg PO DAILY 02/18/21 [History] hydroCHLOROthiazide [Hydrochlorothiazide] 25 mg PO DAILY 02/18/21 [History] ondansetron HCL [Ondansetron HCl] 4 mg PO ASDIRECTED PRN 02/18/21 [History] Past Medical History HEENT History: Reports: Cataract, Impaired Vision Cardiovascular History: Reports: Afib, Heart Murmur, High Cholesterol, Hypertension, SOB on Exertion Respiratory History: Reports: Sleep Apnea, SOB Gastrointestinal History: Reports: Chronic Constipation, GERD Genitourinary History: Reports: Urinary Incontinence Musculoskeletal History: Reports: Arthritis, Fracture, Gout Neurological History: Reports: Neuropathy, Peripheral Psychiatric History: Reports: Anxiety Endocrine/Metabolic History: Reports: Obesity/BMI 30+ Hematologic History: Reports: None Oncologic (Cancer) History: Reports: Basal Cell Carcinoma Dermatologic History: Reports: Psoriasis - Infectious Disease History Infectious Disease History: Reports: Chicken Pox, Measles, Mononucleosis, Mumps, Shingles - Past Surgical History HEENT Surgical History: Reports: Adenoidectomy, Cataract Surgery, Detached Retina, Tonsillectomy Cardiovascular Surgical History: Reports: None Respiratory Surgical History: Reports: None GI Surgical History: Reports: EGD Endocrine Surgical History: Reports: None Neurological Surgical History: Reports: None Musculoskeletal Surgical History: Reports: None Dermatological Surgical History: Reports: None Social & Family History - Family History Family Medical History: No Pertinent Family History - Caffeine Use Caffeine Use: Reports: None H&P Review of Systems - Review of Systems: Review Of Systems: See Below General: Reports: Weakness. Denies: Night Sweats HEENT: Reports: No Symptoms Pulmonary: Reports: No Symptoms Cardiovascular: Reports: Dyspnea on Exertion, Edema. Denies: Orthopnea, Blood Pressure Problem Gastrointestinal: Reports: Constipation Genitourinary: Reports: No Symptoms Musculoskeletal: Reports: Joint Swelling Skin: Reports: Bruising, Rash, Other Psychiatric: Reports: No Symptoms Neurological: Reports: Pre-Existing Deficit, Difficulty Walking, Weakness, Gait Disturbance. Denies: Confusion, Dizziness, Headache, Numbness, Paresthesia, Seizure, Syncope, Tremors Hematologic/Lymphatic: Reports: Easy Bruising Immunologic: Reports: No Symptoms Exam - Exam Exam: See Below - Exam Quality Assessment: DVT Prophylaxis (cross covered with Eliquis) HEENT: Mucosa Moist & [place] Neck: Supple Lungs: Clear to Auscultation, Normal Respiratory Effort Cardiovascular: Regular Rate, Regular Rhythm GI/Abdominal Exam: Normal Bowel Sounds, Soft, Non-Tender, No Organomegaly, No Distention (Male) Exam: Deferred Rectal (Males) Exam: Deferred Back Exam: No: CVA Tenderness (R) ( (non pitting edema, bilateral feet, Left hand--milder on right hand )) Peripheral Pulses: 2+: Brachial (R), Radial (L) Skin: Rash (Rash (Psoriatic rash lumbar region large area)) Neurological: Cranial Nerves Intact, Reflexes Equal Bilateral, Sensation Intact Neuro Extensive - Mental Status: Alert, Oriented x3, Memory Intact Neuro Extensive - Motor, Sensory, Reflexes: CN II-XII Intact, Normal Gait, Normal Reflexes Psychiatric: Alert, Other (poor sleep). No: Depressed Problem List Initiated/Reviewed/Updated: Yes Orders Last 24hrs: Active Orders 24 hr Category Date Time Status Dietary Supplements [RC] ACBED Care 02/20/21 11:31 Active Up With Assistance [RC] ASDIRECTED Care 02/20/21 11:31 Active Vital Signs [RC] Q4H Care 02/20/21 11:31 Active Consult to Case Management/Residential Concierge [CONS] Cons 02/20/21 11:31 Active Routine Consult to Dean Of Graduate Studies [CONS] Routine Cons 02/20/21 11:31 Active PT Evaluation and Treatment [CONS] Routine Cons 02/20/21 11:31 Active 2 Gram Sodium Diet [DIET] Diet 02/20/21 Breakfast Active Acetaminophen [TylenoL] Med 02/20/21 11:31 Ordered 650 mg PO Q4H PRN Acetaminophen [Tylenol Arthritis Pain] Med 02/21/21 09:00 Ordered 650 mg PO DAILY Acetaminophen/HYDROcodone [[place] 325-10 MG] Med 02/20/21 11:31 Ordered 1 tab PO Q6HR PRN Apixaban [Eliquis] Med 02/20/21 21:00 Ordered 5 mg PO BID Diclofenac Sodium [Voltaren 1% Gel] Med 02/20/21 11:31 Ordered 1 gm TOP BID PRN Docusate Sodium [Colace] Med 02/20/21 11:31 Ordered 100 mg PO DAILY PRN FA/Lycopene/Lut/MV,Ca,Iron,Min [Centrum] Med 02/21/21 09:00 Ordered 1 tab PO DAILY Fish Oil/[place]-3 Fatty Acids [Fish Oil] Med 02/21/21 09:00 Ordered 1 gm PO DAILY Ondansetron [Zofran ODT] Med 02/20/21 11:31 Ordered 4 mg PO Q4HR PRN Patient's Own Medication [Ptom] Med 02/20/21 21:00 Ordered 1 each PO BID Patient's Own Medication [Ptom] Med 02/23/21 10:17 Ordered 1 each PO MO Patient's Own Medication [Ptom] Med 02/20/21 11:31 Ordered 1 each PO Q6H PRN Patient's Own Medication [Ptom] Med 02/20/21 11:31 Ordered 1 each TOP DAILY PRN Potassium Chloride [Klor-Con M20] Med 02/20/21 21:00 Ordered 40 meq PO BID Sodium Chloride 0.9% [Saline Flush] Med 02/20/21 11:31 Ordered 10 ml FLUSH Q8HR PRN Triamcinolone Acetonide [Triamcinolone Acetonide 0.1% Med 02/20/21 21:00 Ordered Oint] 1 gm TOP BID allopurinoL [Zyloprim] Med 02/21/21 09:00 Ordered 100 mg PO DAILY atorvaSTATin [Lipitor] Med 02/21/21 09:00 Ordered 20 mg PO DAILY traMADol [Ultram] Med 02/20/21 11:31 Ordered 50 mg PO Q6H PRN Resuscitation Status Routine Resus Stat 02/20/21 11:31 Ordered Medication Orders Acetaminophen (Acetaminophen 325 Mg Tab) 650 mg PO Q4H PRN PRN Reason: Pain (Mild 1-3)/fever Acetaminophen (Acetaminophen 650 Mg Tab.Er) 650 mg PO DAILY ISIDRO Hydrocodone Bitart/Acetaminophen (Acetaminophen/Hydrocodone 325-10 Mg Tab) 1 tab PO Q6HR PRN PRN Reason: Pain Allopurinol (Allopurinol 100 Mg Tab) 100 mg PO DAILY ISIDRO Apixaban (Apixaban 5 Mg Tab) 5 mg PO BID ISIDRO Atorvastatin Calcium (Atorvastatin 10 Mg Tab) 20 mg PO DAILY ISIDRO Diclofenac Sodium (Diclofenac Sodium 1% Gel 100 Gm Tube) 1 gm TOP BID PRN PRN Reason: Pain Docusate Sodium (Docusate Sodium 100 Mg Cap) 100 mg PO DAILY PRN PRN Reason: Constipation Fish Oil (Fish Oil/[place]-3 Fatty Acids 1 Gm Cap) 1 gm PO DAILY [facility] Multivitamins/Minerals (Multivitamins With Minerals/Iron/Folic Acid/Lycopene Tab) 1 tab PO DAILY ISIDRO Ondansetron HCl (Ondansetron 4 Mg Tab.Dis) 4 mg PO Q4HR PRN PRN Reason: Nausea Patient Own Medication (Patient's Own Medication 1 Each) 1 each PO BID ISIDRO Patient Own Medication (Patient's Own Medication 1 Each) 1 each PO MO ISIDRO Patient Own Medication (Patient's Own Medication 1 Each) 1 each PO Q6H PRN PRN Reason: Nausea Patient Own Medication (Patient's Own Medication 1 Each) 1 each TOP DAILY PRN PRN Reason: affected areas, psoriasis Potassium Chloride (Potassium Chloride 20 Meq Tab.Er) 40 meq PO BID [facility] Sodium Chloride (Sodium Chloride 0.9% 10 Ml Syringe) 10 ml FLUSH Q8HR PRN PRN Reason: keep vein open Tramadol HCl (Tramadol 50 Mg Tab) 50 mg PO Q6H PRN PRN Reason: Nausea Triamcinolone Acetonide (Triamcinolone Acetonide 0.1% Oint 15 Gm Tube) 1 gm TOP BID [facility] Assessment/Plan Comment:: History of present illness Patrick was admitted through the ER on 02/17 after presenting by private vehicle for diffuse pain, which had improved at the time he was in the ER, but he had slid OOB at home and was unable to get up. His is not able to lift him if he falls but somehow managed to get him up and bring him to the ER. In the ER he was noted to have an elevated bilirubin at 2.8 which was higher than on labs 2 days previous with it was 1.2. He had swelling in his hands and his legs and was weak, unable to ambulate safely independently. Decision was made to admit for strengthening and pain control. 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 He has been receiving Keytruda every 3 weeks. 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 After his 3rd chemo session he had worsening whole body pain felt to be a neuropathy related to his chemotherapy and so his gabapentin was increased to 900 mg PO BID. Minor improvement. He then presented to the clinic on 02/02 with worsening pain and so gabapentin was increased to 900 mg PO TID. He presented again on 02/16 with 10/10 diffuse pain stating "If I keep going on like this I'll be in the [facility]". He was started on tramadol 50 mg PO q 6 hours PRN which only offered minimal relief. It was noted on 02/16 his hands and feet were swollen. He stated "they get like this when my nerve pain flares up". He contacted the clinic on 02/17 with pain complaints and so hydrocodone was added to his regimen alternating with Tylenol and he was instructed to not take the gabapentin in the event that was causing his swelling. Unfortunately as noted above he slid OOB and was weak and so presented to the ER. [facility] course 02/18; Dr. Kassy Naranjo states "I'm not great, but I'm a whole heck of a lot better than I was yesterday". Pain at rest is a 2/10 and with "sudden jerking movements is a 6/10". weak. He feels all of this symptoms are related to the gabapentin as he states since he has not been taking that he feels much better over the last 18 hours. Bilirubin was up again today at 3 but no other LFT abnormalities. Hepatic U/S was obtained today and is negative. 02/19; on rounds this morning able to monitor her level of function however still needs quite a bit of assistance however is improving in his lower extremity strength. Patient feeling better however significantly weak. No fever overnight, blood pressure is improving, heart rate normal, potassium slowly improving now at 3.0, doubtful renal loss, T bili improving suspect chemo/Keytruda induced--no abdominal pain, fever, or jaundice. non pitting edema, feet, Left hand and milder on right hand, left hand receding erythremia, no increase in warmth. Lagging indicator albumin decreasing Primary swing bed Problems. Weakness, profound upon admission however slowly improving - Up with assistance - Possibly medication related, holding gabapentin - Currently working with PT AND OT Hypokalemia, resolved with supplementation. Suspect d/t Keyturda. -We will keep on potassium however reduced back down to 20 mEq since now normalizing Pain, MUCH improved. -Alternating Tramadol and Hydrocodone -Holding Gabapentin daya since significant peripheral edema Protein malnutrition, -add MVI with zinc Secondary Diagnoses: Arthritis - Tylenol 650 mg PO daily Hx of Afib, currently in NSR - Eliquis 5 mg PO BID - Holding metoprolol due to recent hx of hypotension, parameters to restart Gout - Allopurinol Hyperlipidemia - Atorvastatin 20 mg PO daily Rhona Cell Carcinoma - [facility] as an outpatient per oncology Nausea - Currently no nausea Psoriasis - Otezla BID per dermatology FEN; p.o. fluids, Low Dose, K+ supplementation, low-sodium diet, Code status, DNR, POLST signed and on file during ACUTE stay DVT prophylaxis, cross-covered on factor Xa inhibitor Disposition/overall plan --Patient meets swing bed criteria for both PT/OT Physcial Therapy --Gradient pressure wraps bilateral lower extremities and LUE, Ask to order Tubigrip fur future clinic/hospital dual use. (see [facility] for sizes before ordering) --Restart metoprolol if SBP greater than 140 DBP greater than 90 OR HR >100 --Out of bed most of day --CMP Tuesday --Elevate LUE --Reinforce ankle pumps to patient as taught --Sleep hygiene, discussed with RN and patient, appears not tolerating melatonin/arousable, will change to Ambien however only short-term --Add MVI with Zinc, - Mortality Measure Prognosis:: Good
--- NOTE | 2021-02-20 12:10 | PCM.DCSUM1 ---
Discharge Summary - Hospital Course Diagnosis: Stroke: No - Discharge Data Discharge Date: 02/20/21 Discharge Disposition: DC/Tfer W/I Hosp To Swing 61 Condition: Good - Referral to Home Health Primary Care Physician: Kassy Fam MD - Patient Summary/Data Consults: Consultations 02/20/21 11:31 Consult to Case Management/Infant Teacher [CONS] Routine Consult to Activities Attendant [CONS] Routine PT Evaluation and Treatment [CONS] Routine 02/20/21 11:54 OT Evaluation and Treatment [CONS] Routine - Discharge Plan Home Medications: Home Meds Fish Oil/[place]-3 Fatty Acids [Fish Oil 1,000 MG] 1 each PO DAILY 07/16/18 [History] Multivitamin [Multi-Vitamin Daily] 1 each PO DAILY 07/16/18 [History] Acetaminophen [Tylenol] 650 mg PO Q6H PRN 03/09/19 [History] Apixaban [Eliquis] 5 mg PO BID 03/09/19 [History] Gabapentin [Neurontin] 900 mg PO TID 03/09/19 [History] Ibuprofen 600 mg PO DAILY 03/09/19 [History] Apremilast [Otezla] 30 mg PO BID 02/17/21 [History] Diclofenac Sodium [Voltaren] 1 applic TP BID PRN 02/17/21 [History] Ergocalciferol (Vitamin D2) [Vitamin D2] 50,000 unit PO MO 02/17/21 [History] Hydrocodone/Acetaminophen [HYDROcodone-Acetaminophen 10-325 MG] 1 each PO Q6H PRN 02/17/21 [History] Promethazine [Phenergan] 25 mg PO Q6H PRN 02/17/21 [History] Triamcinolone Acetonide [Triamcinolone Acetonide 0.1% Oint] 1 applic TOP BID 02/17/21 [History] traMADol [Ultram] 50 mg PO Q6H PRN 02/17/21 [History] Benazepril HCl 20 mg PO DAILY 02/18/21 [History] Calcium Carbonate/Vitamin D3 [Calcium 600-Vit D3 200 Tablet] 1 tab PO DAILY 02/18/21 [History] Cyanocobalamin (Vitamin B-12) [Vitamin B-12] 1,000 mcg PO DAILY 02/18/21 [History] Metoprolol Succinate 50 mg PO DAILY 02/18/21 [History] Pembrolizumab [Keytruda] IV ASDIRECTED 02/18/21 [History] Potassium Chloride 20 mg PO DAILY 02/18/21 [History] Pyrithione Zinc [[place] Formula] 1 spray TOP DAILY PRN 02/18/21 [History] allopurinoL [Zyloprim] 100 mg PO DAILY 02/18/21 [History] atorvaSTATin Calcium [Atorvastatin Calcium] 20 mg PO DAILY 02/18/21 [History] hydroCHLOROthiazide [Hydrochlorothiazide] 25 mg PO DAILY 02/18/21 [History] ondansetron HCL [Ondansetron HCl] 4 mg PO ASDIRECTED PRN 02/18/21 [History] - Discharge Summary/Plan Comment DC Time >30 min.: Yes Total # of Minutes for Discharge Time: 50 minutes. Discharge Summary/Plan Comment: Final Dx: Weakness, profound upon admission Hypokalemia, resolved with supplementation. Pain, MUCH improved. Protein malnutrition, Hx Summary: Patrick was admitted through the ER on 02/17 after presenting by private vehicle for diffuse pain, which had improved at the time he was in the ER, but he had slid OOB at home and was unable to get up. His is not able to lift him if he falls but somehow managed to get him up and bring him to the ER. In the ER he was noted to have an elevated bilirubin at 2.8 which was higher than on labs 2 days previous with it was 1.2. He had swelling in his hands and his legs and was weak, unable to ambulate safely independently. Decision was made to admit for strengthening and pain control. 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 He has been receiving Keytruda every 3 weeks. 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 After his 3rd chemo session he had worsening whole body pain felt to be a neuropathy related to his chemotherapy and so his gabapentin was increased to 900 mg PO BID. Minor improvement. He then presented to the clinic on 02/02 with worsening pain and so gabapentin was increased to 900 mg PO TID. He presented again on 02/16 with 10/10 diffuse pain stating "If I keep going on like this I'll be in the [facility]". He was started on tramadol 50 mg PO q 6 hours PRN which only offered minimal relief. It was noted on 02/16 his hands and feet were swollen. He stated "they get like this when my nerve pain flares up". He contacted the clinic on 02/17 with pain complaints and so hydrocodone 10/325 was added to his regimen alternating with Tylenol and he was instructed to not take the gabapentin in the event that was causing his swelling. Unfortunately as noted above he slid OOB and was weak and so presented to the ER. Hospital course 02/18; Dr. Kassy Naranjo states "I'm not great, but I'm a whole heck of a lot better than I was yesterday". Pain at rest is a 2/10 and with "sudden jerking movements is a 6/10". weak. He feels all of this symptoms are related to the gabapentin as he states since he has not been taking that he feels much better over the last 18 hours. Bilirubin was up again today at 3 but no other LFT abnormalities. Hepatic U/S was obtained today and is negative. 02/19; on rounds this morning able to monitor her level of function however still needs quite a bit of assistance however is improving in his lower extremity strength. Patient feeling better however significantly weak. No fever overnight, blood pressure is improving, heart rate normal, potassium slowly improving now at 3.0, doubtful renal loss, T bili improving suspect chemo/Keytruda induced--no abdominal pain, fever, or jaundice. non pitting edema, feet, Left hand and milder on right hand, left hand receding erythremia, no increase in warmth. Lagging indicator albumin decreasing Review Of Systems: See Below General: Reports: Weakness. Denies: Night Sweats HEENT: Reports: No Symptoms Pulmonary: Reports: No Symptoms Cardiovascular: Reports: Dyspnea on Exertion, Edema. Denies: Orthopnea, Blood Pressure Problem Gastrointestinal: Reports: Constipation Genitourinary: Reports: No Symptoms Musculoskeletal: Reports: Joint Swelling Skin: Reports: Bruising, Rash, Other Psychiatric: Reports: No Symptoms Neurological: Reports: Pre-Existing Deficit, Difficulty Walking, Weakness, Gait Disturbance. Denies: Confusion, Dizziness, Headache, Numbness, Paresthesia, Seizure, Syncope, Tremors Hematologic/Lymphatic: Reports: Easy Bruising Immunologic: Reports: No Symptoms - Exam Quality Assessment: DVT Prophylaxis (cross covered with Eliquis) HEENT: Mucosa Moist & [place] Neck: Supple Lungs: Clear to Auscultation, Normal Respiratory Effort Cardiovascular: Regular Rate, Regular Rhythm GI/Abdominal Exam: Normal Bowel Sounds, Soft, Non-Tender, No Organomegaly, No Distention (Male) Exam: Deferred Rectal (Males) Exam: Deferred Back Exam: No: CVA Tenderness (R) ( (non pitting edema, bilateral feet, Left hand--milder on right hand )) Peripheral Pulses: 2+: Brachial (R), Radial (L) Skin: Rash (Rash (Psoriatic rash lumbar region large area)) Neurological: Cranial Nerves Intact, Reflexes Equal Bilateral, Sensation Intact Neuro Extensive - Mental Status: Alert, Oriented x3, Memory Intact Neuro Extensive - Motor, Sensory, Reflexes: CN II-XII Intact, Normal Gait, Normal Reflexes Psychiatric: Alert, Other (poor sleep). No: Depressed Disposition/overall plan --Patient will be admitted in Swing Bed, he meets qualification for both PT/OT - Patient Data Med Orders - Current: Current Medications Acetaminophen (Acetaminophen 325 Mg Tab) 650 mg PO Q4H PRN PRN Reason: Pain (Mild 1-3)/fever Acetaminophen (Acetaminophen 650 Mg Tab.Er) 650 mg PO DAILY [facility] TO [facility] Hydrocodone Bitart/Acetaminophen (Acetaminophen/Hydrocodone 325-10 Mg Tab) 1 tab PO Q6HR PRN PRN Reason: Pain Allopurinol (Allopurinol 100 Mg Tab) 100 mg PO DAILY [facility] Apixaban (Apixaban 5 Mg Tab) 5 mg PO BID [facility] Atorvastatin Calcium (Atorvastatin 10 Mg Tab) 20 mg PO DAILY [facility] Diclofenac Sodium (Diclofenac Sodium 1% Gel 100 Gm Tube) 1 gm TOP BID PRN PRN Reason: Pain Docusate Sodium (Docusate Sodium 100 Mg Cap) 100 mg PO DAILY PRN PRN Reason: Constipation Fish Oil (Fish Oil/[place]-3 Fatty Acids 1 Gm Cap) 1 gm PO DAILY [facility] Multivitamins/Minerals (Multivitamins With Minerals/Iron/Folic Acid/Lycopene Tab) 1 tab PO DAILY [facility] Ondansetron HCl (Ondansetron 4 Mg Tab.Dis) 4 mg PO Q4HR PRN PRN Reason: Nausea Patient Own Medication (Patient's Own Medication 1 Each) 1 each PO BID ISIDRO Patient Own Medication (Patient's Own Medication 1 Each) 1 each PO MO ISIDRO Patient Own Medication (Patient's Own Medication 1 Each) 1 each PO Q6H PRN PRN Reason: Nausea Patient Own Medication (Patient's Own Medication 1 Each) 1 each TOP DAILY PRN PRN Reason: affected areas, psoriasis Potassium Chloride (Potassium Chloride 20 Meq Tab.Er) 40 meq PO BID ISIDRO Potassium Chloride (Potassium Chloride 10 Meq Tab.Er) 20 meq PO WITHBREAKFAST ISIDRO Potassium Chloride (Potassium Chloride 20 Meq Tab.Er) 20 meq PO DAILY ISIDRO Stop: 02/25/21 23:59 Sodium Chloride (Sodium Chloride 0.9% 10 Ml Syringe) 10 ml FLUSH Q8HR PRN PRN Reason: keep vein open Tramadol HCl (Tramadol 50 Mg Tab) 50 mg PO Q6H PRN PRN Reason: Nausea Triamcinolone Acetonide (Triamcinolone Acetonide 0.1% Oint 15 Gm Tube) 1 gm TOP BID ISIDRO Zolpidem Tartrate (Zolpidem 5 Mg Tab) 10 mg PO BEDTIME PRN PRN Reason: Insomnia
[2021-02-20] MEDS: Apixaban 5 MG Tab PO SCH (20:43)
[2021-02-20] MEDS: Potassium Chloride 20 MEQ Tab.ER PO SCH (20:43)
[2021-02-20] MEDS: Triamcinolone Acetonide 0.1% Oint 15 GM Tube TOP SCH (20:44)
[2021-02-20] MEDS: OTEZLA 30 MG PO SCH (20:44)
[2021-02-20] MEDS ORDERED: Zolpidem 5 MG Tab PO PRN (21:00)
[2021-02-21] MEDS ORDERED: Potassium Chloride 20 MEQ Tab.ER PO SCH (08:00)
[2021-02-21] MEDS: atorvaSTATin 10 MG Tab PO SCH (08:20)
[2021-02-21] MEDS: Fish Oil/Omega-3 Fatty Acids 1 Gm Cap PO SCH (08:20)
[2021-02-21] MEDS: Multivitamins with Minerals/Iron/Folic Acid/Lycopene Tab PO SCH (08:20)
[2021-02-21] MEDS: Apixaban 5 MG Tab PO SCH ×2 (08:20→20:40)
[2021-02-21] MEDS: Allopurinol 100 MG Tab PO SCH (08:20)
[2021-02-21] MEDS: Acetaminophen 650 MG Tab.ER PO SCH (08:21)
[2021-02-21] MEDS: Potassium Chloride 20 MEQ Tab.ER PO SCH ×2 (08:22→20:40)
[2021-02-21] MEDS: Triamcinolone Acetonide 0.1% Oint 15 GM Tube TOP SCH ×2 (08:23→20:40)
[2021-02-21] MEDS: OTEZLA 30 MG PO SCH ×2 (08:23→20:40)
[2021-02-21] MEDS ORDERED: Mirtazapine 15 MG Tab PO PRN (11:02)
[2021-02-21] MEDS: Metoprolol Succinate 50 MG Tab.ER PO SCH (11:31)
[2021-02-21] MEDS: traMADol 50 MG Tab PO PRN (20:41)
[2021-02-21] MEDS: Diclofenac Sodium 1% Gel 100 GM Tube TOP PRN (20:42)
[2021-02-22] MEDS: Allopurinol 100 MG Tab PO SCH (09:44)
[2021-02-22] MEDS: atorvaSTATin 10 MG Tab PO SCH (09:44)
[2021-02-22] MEDS: Metoprolol Succinate 50 MG Tab.ER PO SCH (09:44)
[2021-02-22] MEDS: Fish Oil/Omega-3 Fatty Acids 1 Gm Cap PO SCH (09:44)
[2021-02-22] MEDS: Acetaminophen 650 MG Tab.ER PO SCH (09:44)
[2021-02-22] MEDS: Multivitamins with Minerals/Iron/Folic Acid/Lycopene Tab PO SCH (09:44)
[2021-02-22] MEDS: Apixaban 5 MG Tab PO SCH ×2 (09:44→20:43)
[2021-02-22] MEDS: Potassium Chloride 20 MEQ Tab.ER PO SCH ×3 (09:44→20:43)
[2021-02-22] MEDS: Triamcinolone Acetonide 0.1% Oint 15 GM Tube TOP SCH ×2 (09:47→20:44)
[2021-02-22] MEDS: OTEZLA 30 MG PO SCH ×2 (09:47→20:44)
[2021-02-22] MEDS: [UNRECOGNIZED DRUG - OTHER] TOP PRN (09:48)
[2021-02-22] MEDS: Diclofenac Sodium 1% Gel 100 GM Tube TOP PRN (20:45)
[2021-02-22] MEDS: LORazepam 0.5 MG Tab PO PRN (22:48)
[2021-02-23 07:39] LABS: ANION GAP 14.5 mmol/L (5-15); CHLORIDE,CL 104 mmol/L (98-107); SODIUM,NA 141 mmol/L (136-145)
[2021-02-23] MEDS: Fish Oil/Omega-3 Fatty Acids 1 Gm Cap PO SCH (08:38)
[2021-02-23] MEDS: Apixaban 5 MG Tab PO SCH ×2 (08:38→20:11)
[2021-02-23] MEDS: atorvaSTATin 10 MG Tab PO SCH (08:38)
[2021-02-23] MEDS: Multivitamins with Minerals/Iron/Folic Acid/Lycopene Tab PO SCH (08:38)
[2021-02-23] MEDS: Potassium Chloride 20 MEQ Tab.ER PO SCH ×2 (08:38→20:11)
[2021-02-23] MEDS: Allopurinol 100 MG Tab PO SCH (08:39)
[2021-02-23] MEDS: Acetaminophen 650 MG Tab.ER PO SCH (08:39)
[2021-02-23] MEDS: OTEZLA 30 MG PO SCH ×2 (08:41→20:11)
[2021-02-23] MEDS: Metoprolol Succinate 50 MG Tab.ER PO SCH (08:44)
[2021-02-23] MEDS: Triamcinolone Acetonide 0.1% Oint 15 GM Tube TOP SCH ×2 (09:49→20:11)
[2021-02-23] MEDS ORDERED: VITAMIN D 50000 UNIT PO SCH (10:17)
[2021-02-23] MEDS: Polyethylene Glycol 3350 Powder 17 GM Packet PO PRN (10:41)
[2021-02-23] MEDS: Diclofenac Sodium 1% Gel 100 GM Tube TOP PRN (18:00)
[2021-02-24] MEDS: Acetaminophen 325 MG Tab PO PRN (00:32)
[2021-02-24] MEDS: atorvaSTATin 10 MG Tab PO SCH (08:40)
[2021-02-24] MEDS: Fish Oil/Omega-3 Fatty Acids 1 Gm Cap PO SCH (08:40)
[2021-02-24] MEDS: Metoprolol Succinate 50 MG Tab.ER PO SCH (08:40)
[2021-02-24] MEDS: Allopurinol 100 MG Tab PO SCH (08:40)
[2021-02-24] MEDS: Apixaban 5 MG Tab PO SCH ×2 (08:40→20:11)
[2021-02-24] MEDS: Potassium Chloride 20 MEQ Tab.ER PO SCH ×2 (08:41→20:11)
[2021-02-24] MEDS: OTEZLA 30 MG PO SCH ×2 (08:41→20:11)
[2021-02-24] MEDS: Acetaminophen 650 MG Tab.ER PO SCH (08:41)
[2021-02-24] MEDS: Multivitamins with Minerals/Iron/Folic Acid/Lycopene Tab PO SCH (08:41)
[2021-02-24] MEDS: Triamcinolone Acetonide 0.1% Oint 15 GM Tube TOP SCH ×2 (08:41→20:11)
[2021-02-24] MEDS: Polyethylene Glycol 3350 Powder 17 GM Packet PO PRN (11:47)
[2021-02-24] MEDS ORDERED: Simethicone 80 MG Tab.Chew PO PRN (21:02)
[2021-02-24] MEDS: Diclofenac Sodium 1% Gel 100 GM Tube TOP PRN (22:00)
[2021-02-25] MEDS: Acetaminophen 325 MG Tab PO PRN (00:25)
[2021-02-25] MEDS: [UNRECOGNIZED DRUG - OTHER] TOP PRN ×2 (00:47→21:45)
[2021-02-25] MEDS: Metoprolol Succinate 50 MG Tab.ER PO SCH (09:01)
[2021-02-25] MEDS: Acetaminophen 650 MG Tab.ER PO SCH (09:02)
[2021-02-25] MEDS: Potassium Chloride 20 MEQ Tab.ER PO SCH ×2 (09:03→21:42)
[2021-02-25] MEDS: atorvaSTATin 10 MG Tab PO SCH (09:03)
[2021-02-25] MEDS: Allopurinol 100 MG Tab PO SCH (09:03)
[2021-02-25] MEDS: Multivitamins with Minerals/Iron/Folic Acid/Lycopene Tab PO SCH (09:03)
[2021-02-25] MEDS: Apixaban 5 MG Tab PO SCH ×2 (09:03→21:43)
[2021-02-25] MEDS: Fish Oil/Omega-3 Fatty Acids 1 Gm Cap PO SCH (09:03)
[2021-02-25] MEDS: Triamcinolone Acetonide 0.1% Oint 15 GM Tube TOP SCH ×2 (09:04→21:43)
[2021-02-25] MEDS: OTEZLA 30 MG PO SCH ×2 (09:05→21:43)
--- NOTE | 2021-02-25 20:23 | PCM.SN.2 ---
- Free Text/Narrative Note: Mariano Coles, PT and myself visited with Patrick and Glo this afternoon about our concerns about him trying to go to [place] for Thanksgiving. Patrick was adamant that he had sons and grandchildren that could help him get in and out of a car and help him at their home in [place]. Mariano put Patrick's walker in front of him and asked him to get up on his own. Patrick was unable. We stated to Patrick and Glo that we are very concerned he could have an adverse event in [place] with his inability to ambulate independently. We empathized with him about the frustration of not being able to get together with family on but ultimately his safety is of our utmost concern. Patrick voiced understanding of this, albeit him being frustrated, but he stated he understood. We also talked about transition to [place] for therapy next week. He stated he had no problem going to the [facility] for rehab. He had several questions about his LTC insurance and how that would work if he went to the [place] temporarily. Informed him those are questions he would need to discuss further with social work and they would be in to talk with him on Tuesday. He voiced understanding.
[2021-02-25] MEDS: traMADol 50 MG Tab PO PRN (21:42)
[2021-02-25] MEDS: Diclofenac Sodium 1% Gel 100 GM Tube TOP PRN (21:44)
[2021-02-26] MEDS: traMADol 50 MG Tab PO PRN (06:36)
[2021-02-26] MEDS: Multivitamins with Minerals/Iron/Folic Acid/Lycopene Tab PO SCH (08:55)
[2021-02-26] MEDS: Allopurinol 100 MG Tab PO SCH (08:55)
[2021-02-26] MEDS: Fish Oil/Omega-3 Fatty Acids 1 Gm Cap PO SCH (08:55)
[2021-02-26] MEDS: Potassium Chloride 20 MEQ Tab.ER PO SCH ×2 (08:56→20:18)
[2021-02-26] MEDS: Acetaminophen 650 MG Tab.ER PO SCH (08:56)
[2021-02-26] MEDS: Apixaban 5 MG Tab PO SCH ×2 (08:56→20:18)
[2021-02-26] MEDS: atorvaSTATin 10 MG Tab PO SCH (08:57)
[2021-02-26] MEDS: Metoprolol Succinate 50 MG Tab.ER PO SCH (08:58)
[2021-02-26] MEDS: OTEZLA 30 MG PO SCH ×2 (08:59→20:18)
[2021-02-26] MEDS: Triamcinolone Acetonide 0.1% Oint 15 GM Tube TOP SCH ×2 (09:43→20:18)
[2021-02-27] MEDS: Acetaminophen/HYDROcodone 325-10 MG Tab PO PRN ×2 (04:41→22:21)
[2021-02-27] MEDS: Acetaminophen 650 MG Tab.ER PO SCH (08:27)
[2021-02-27] MEDS: Potassium Chloride 20 MEQ Tab.ER PO SCH ×2 (08:27→20:06)
[2021-02-27] MEDS: Apixaban 5 MG Tab PO SCH ×2 (08:27→20:05)
[2021-02-27] MEDS: Fish Oil/Omega-3 Fatty Acids 1 Gm Cap PO SCH (08:27)
[2021-02-27] MEDS: Allopurinol 100 MG Tab PO SCH (08:28)
[2021-02-27] MEDS: Multivitamins with Minerals/Iron/Folic Acid/Lycopene Tab PO SCH (08:28)
[2021-02-27] MEDS: atorvaSTATin 10 MG Tab PO SCH (08:28)
[2021-02-27] MEDS: Metoprolol Succinate 50 MG Tab.ER PO SCH (08:42)
[2021-02-27] MEDS: Triamcinolone Acetonide 0.1% Oint 15 GM Tube TOP SCH ×2 (08:43→20:06)
[2021-02-27] MEDS: OTEZLA 30 MG PO SCH ×2 (08:43→20:06)
[2021-02-27] MEDS: Polyethylene Glycol 3350 Powder 17 GM Packet PO PRN (20:06)
[2021-02-27] MEDS: [UNRECOGNIZED DRUG - OTHER] TOP PRN (21:20)
[2021-02-27] MEDS: Diclofenac Sodium 1% Gel 100 GM Tube TOP PRN (22:25)
[2021-02-27] MEDS: LORazepam 0.5 MG Tab PO PRN (23:36)
[2021-02-28] MEDS: Multivitamins with Minerals/Iron/Folic Acid/Lycopene Tab PO SCH (10:00)
[2021-02-28] MEDS: Acetaminophen 650 MG Tab.ER PO SCH (10:00)
[2021-02-28] MEDS: Diclofenac Sodium 1% Gel 100 GM Tube TOP PRN ×2 (10:00→20:36)
[2021-02-28] MEDS: Metoprolol Succinate 50 MG Tab.ER PO SCH (10:00)
[2021-02-28] MEDS: Apixaban 5 MG Tab PO SCH ×2 (10:00→20:36)
[2021-02-28] MEDS: atorvaSTATin 10 MG Tab PO SCH (10:00)
[2021-02-28] MEDS: OTEZLA 30 MG PO SCH ×2 (10:00→20:36)
[2021-02-28] MEDS: Fish Oil/Omega-3 Fatty Acids 1 Gm Cap PO SCH (10:00)
[2021-02-28] MEDS: Triamcinolone Acetonide 0.1% Oint 15 GM Tube TOP SCH ×2 (10:00→20:37)
[2021-02-28] MEDS: Potassium Chloride 20 MEQ Tab.ER PO SCH ×2 (10:00→20:36)
[2021-02-28] MEDS: Allopurinol 100 MG Tab PO SCH (10:00)
[2021-02-28] MEDS: Polyethylene Glycol 3350 Powder 17 GM Packet PO PRN (20:35)
[2021-02-28] MEDS: Acetaminophen/HYDROcodone 325-10 MG Tab PO PRN (22:48)
[2021-03-01] MEDS: traMADol 50 MG Tab PO PRN (04:14)
[2021-03-01] MEDS: Multivitamins with Minerals/Iron/Folic Acid/Lycopene Tab PO SCH (08:26)
[2021-03-01] MEDS: Acetaminophen 650 MG Tab.ER PO SCH (08:26)
[2021-03-01] MEDS: Potassium Chloride 20 MEQ Tab.ER PO SCH ×2 (08:27→21:45)
[2021-03-01] MEDS: Apixaban 5 MG Tab PO SCH ×2 (08:27→21:49)
[2021-03-01] MEDS: atorvaSTATin 10 MG Tab PO SCH (08:27)
[2021-03-01] MEDS: Metoprolol Succinate 50 MG Tab.ER PO SCH (08:27)
[2021-03-01] MEDS: OTEZLA 30 MG PO SCH ×2 (08:27→21:48)
[2021-03-01] MEDS: Fish Oil/Omega-3 Fatty Acids 1 Gm Cap PO SCH (08:27)
[2021-03-01] MEDS: Allopurinol 100 MG Tab PO SCH (08:27)
[2021-03-01] MEDS: Triamcinolone Acetonide 0.1% Oint 15 GM Tube TOP SCH ×2 (08:29→21:49)
[2021-03-01] MEDS: Diclofenac Sodium 1% Gel 100 GM Tube TOP PRN (16:47)
[2021-03-01] MEDS: Acetaminophen/HYDROcodone 325-10 MG Tab PO PRN (21:47)
[2021-03-01] MEDS: [UNRECOGNIZED DRUG - OTHER] TOP PRN (21:51)
[2021-03-01] MEDS: Polyethylene Glycol 3350 Powder 17 GM Packet PO PRN (22:00)
[2021-03-01] MEDS: LORazepam 0.5 MG Tab PO PRN (23:34)
[2021-03-02] MEDS: Acetaminophen 650 MG Tab.ER PO SCH (09:04)
[2021-03-02] MEDS: Potassium Chloride 20 MEQ Tab.ER PO SCH ×2 (09:04→20:30)
[2021-03-02] MEDS: OTEZLA 30 MG PO SCH ×2 (09:04→20:30)
[2021-03-02] MEDS: atorvaSTATin 10 MG Tab PO SCH (09:05)
[2021-03-02] MEDS: Allopurinol 100 MG Tab PO SCH (09:05)
[2021-03-02] MEDS: Apixaban 5 MG Tab PO SCH ×2 (09:05→20:30)
[2021-03-02] MEDS: Metoprolol Succinate 50 MG Tab.ER PO SCH (09:05)
[2021-03-02] MEDS: Fish Oil/Omega-3 Fatty Acids 1 Gm Cap PO SCH (09:05)
[2021-03-02] MEDS: Multivitamins with Minerals/Iron/Folic Acid/Lycopene Tab PO SCH (09:06)
[2021-03-02] MEDS: Triamcinolone Acetonide 0.1% Oint 15 GM Tube TOP SCH ×2 (11:07→20:31)
[2021-03-02] MEDS ORDERED: Magnesium Hydroxide 400 MG/5 ML Susp 30 ML Cup PO PRN (16:57)
[2021-03-02] MEDS: Diclofenac Sodium 1% Gel 100 GM Tube TOP PRN ×2 (17:10→22:25)
[2021-03-02] MEDS: Acetaminophen/HYDROcodone 325-10 MG Tab PO PRN (20:09)
[2021-03-03] MEDS: LORazepam 0.5 MG Tab PO PRN (00:12)
[2021-03-03] MEDS: Acetaminophen/HYDROcodone 325-10 MG Tab PO PRN (08:33)
[2021-03-03] MEDS: Acetaminophen 650 MG Tab.ER PO SCH (08:34)
[2021-03-03] MEDS: Potassium Chloride 20 MEQ Tab.ER PO SCH (10:27)
[2021-03-03] MEDS: atorvaSTATin 10 MG Tab PO SCH (10:27)
[2021-03-03] MEDS: Metoprolol Succinate 50 MG Tab.ER PO SCH (10:28)
[2021-03-03] MEDS: Allopurinol 100 MG Tab PO SCH (10:28)
[2021-03-03] MEDS: Apixaban 5 MG Tab PO SCH (10:28)
[2021-03-03] MEDS: Multivitamins with Minerals/Iron/Folic Acid/Lycopene Tab PO SCH (10:33)
[2021-03-03] MEDS: Fish Oil/Omega-3 Fatty Acids 1 Gm Cap PO SCH (10:33)
[2021-03-03] MEDS: Triamcinolone Acetonide 0.1% Oint 15 GM Tube TOP SCH (10:35)
[2021-03-03] MEDS: OTEZLA 30 MG PO SCH (10:36)
--- NOTE | 2021-03-03 11:43 | PCM.DCSUM1 ---
Discharge Summary - Hospital Course Diagnosis: Stroke: No - Discharge Data Discharge Date: 03/03/21 Discharge Disposition: DC/Tfer to SNF 03 Condition: Good - Referral to Home Health Primary Care Physician: Kassy Fam MD - Patient Summary/Data Consults: Consultations 02/20/21 11:31 Consult to Case Management/Pocket Operator [CONS] Routine Consult to Research Soil Scientist [CONS] Routine PT Evaluation and Treatment [CONS] Routine 02/20/21 11:54 OT Evaluation and Treatment [CONS] Routine - Patient Instructions Diet: Low Sodium Activity: As Tolerated Driving: Do Not Drive Showering/Bathing: August Shower Notify Provider of: Fever, Swelling and Redness - Discharge Plan *PRESCRIPTION DRUG MONITORING PROGRAM REVIEWED*: Not Applicable *COPY OF PRESCRIPTION DRUG MONITORING REPORT IN PATIENT SELVIN: Not Applicable Home Medications: Home Meds Fish Oil/Arvin-3 Fatty Acids [Fish Oil 1,000 MG] 1 each PO DAILY 07/16/18 [History] Multivitamin [Multi-Vitamin Daily] 1 each PO DAILY 07/16/18 [History] Acetaminophen [Tylenol] 650 mg PO Q6H PRN 03/09/19 [History] Apixaban [Eliquis] 5 mg PO BID 03/09/19 [History] Gabapentin [Neurontin] 900 mg PO TID 03/09/19 [History] Ibuprofen 600 mg PO DAILY 03/09/19 [History] Apremilast [Otezla] 30 mg PO BID 02/17/21 [History] Diclofenac Sodium [Voltaren] 1 applic TP BID PRN 02/17/21 [History] Ergocalciferol (Vitamin D2) [Vitamin D2] 50,000 unit PO MO 02/17/21 [History] Hydrocodone/Acetaminophen [HYDROcodone-Acetaminophen 10-325 MG] 1 each PO Q6H PRN 02/17/21 [History] Promethazine [Phenergan] 25 mg PO Q6H PRN 02/17/21 [History] Triamcinolone Acetonide [Triamcinolone Acetonide 0.1% Oint] 1 applic TOP BID 02/17/21 [History] traMADol [Ultram] 50 mg PO Q6H PRN 02/17/21 [History] Benazepril HCl 20 mg PO DAILY 02/18/21 [History] Calcium Carbonate/Vitamin D3 [Calcium 600-Vit D3 200 Tablet] 1 tab PO DAILY 02/18/21 [History] Cyanocobalamin (Vitamin B-12) [Vitamin B-12] 1,000 mcg PO DAILY 02/18/21 [History] Metoprolol Succinate 50 mg PO DAILY 02/18/21 [History] Pembrolizumab [Keytruda] 50 mg IV ASDIRECTED 02/18/21 [History] Potassium Chloride 20 mg PO DAILY 02/18/21 [History] Pyrithione Zinc [Conroy Formula] 1 spray TOP DAILY PRN 02/18/21 [History] allopurinoL [Zyloprim] 100 mg PO DAILY 02/18/21 [History] atorvaSTATin Calcium [Atorvastatin Calcium] 20 mg PO DAILY 02/18/21 [History] hydroCHLOROthiazide [Hydrochlorothiazide] 25 mg PO DAILY 02/18/21 [History] ondansetron HCL [Ondansetron HCl] 4 mg PO ASDIRECTED PRN 02/18/21 [History] Acetaminophen [Tylenol Arthritis Pain] 650 mg PO DAILY tab.er 03/03/21 [Rx] Acetaminophen [Tylenol] 650 mg PO Q4H PRN tablet 03/03/21 [Rx] Apixaban [Eliquis] 5 mg PO BID tablet 03/03/21 [Rx] Diclofenac Sodium [Voltaren 1% Gel] 1 gm TOP BID PRN tube 03/03/21 [Rx] Docusate Sodium [Colace] 100 mg PO DAILY PRN cap 03/03/21 [Rx] FA/Lycopene/Lut/MV,Ca,Iron,Min [Centrum] 1 tab PO DAILY tablet 03/03/21 [Rx] Fish Oil/Arvin-3 Fatty Acids [Fish Oil 1,000 MG] 1 gm PO DAILY cap 03/03/21 [Rx] LORazepam [Ativan] 1 mg PO BEDTIME PRN tablet 03/03/21 [Rx] Magnesium Hydroxide [Milk of Magnesia] 30 ml PO DAILY PRN cup 03/03/21 [Rx] Ondansetron [Zofran ODT] 4 mg PO Q4H PRN tab.dis 03/03/21 [Rx] Patient's Own Medication [Ptom] 1 each PO BID each 03/03/21 [Rx] Patient's Own Medication [Ptom] 1 each PO MO each 03/03/21 [Rx] Patient's Own Medication [Ptom] 1 each PO Q6H PRN each 03/03/21 [Rx] Patient's Own Medication [Ptom] 1 each TOP DAILY PRN each 03/03/21 [Rx] Potassium Chloride [Klor-Con M20] 20 meq PO BID tab.er 03/03/21 [Rx] Simethicone 80 mg PO QID PRN tab.chew 03/03/21 [Rx] allopurinoL [Zyloprim] 100 mg PO DAILY tablet 03/03/21 [Rx] atorvaSTATin [Lipitor] 20 mg PO DAILY tablet 03/03/21 [Rx] polyethylene glycoL 3350 [MiraLAX] 17 gm PO DAILY PRN packet 03/03/21 [Rx] traMADol [Ultram] 50 mg PO Q6H PRN tablet 03/03/21 [Rx] Referrals: [facility] [Outside] - Discharge Summary/Plan Comment DC Time >30 min.: No Total # of Minutes for Discharge Time: 25 min Discharge Summary/Plan Comment: Final Dx Weakness, profound upon admission however slowly improving Hypokalemia, resolved with supplementation. Suspect d/t Keyturda. Pain, MUCH improved. -Alternating Tramadol and Hydrocodone -Holding Gabapentin daya since significant peripheral edema Secondary Diagnoses: Arthritis Hx of Afib, currently in NSR Gout Allopurinol Hyperlipidemia Rhona Cell Carcinoma Psoriasis History Summary: Patrick was admitted through the ER on 02/17 after presenting by private vehicle for diffuse pain, which had improved at the time he was in the ER, but he had slid OOB at home and was unable to get up. His is not able to lift him if he falls but somehow managed to get him up and bring him to the ER. In the ER he was noted to have an elevated bilirubin at 2.8 which was higher than on labs 2 days previous with it was 1.2. He had swelling in his hands and his legs and was weak, unable to ambulate safely independently. Decision was made to admit for strengthening and pain control. 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 He has been receiving Keytruda every 3 weeks. 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 After his 3rd chemo session he had worsening whole body pain felt to be a neuropathy related to his chemotherapy and so his gabapentin was increased to 900 mg PO BID. Minor improvement. He then presented to the clinic on 02/02 with worsening pain and so gabapentin was increased to 900 mg PO TID. He presented again on 02/16 with 10/10 diffuse pain stating "If I keep going on like this I'll be in the NH". He was started on tramadol 50 mg PO q 6 hours PRN which only offered minimal relief. It was noted on 02/16 his hands and feet were swollen. He stated "they get like this when my nerve pain flares up". He contacted the clinic on 02/17 with pain complaints and so hydrocodone 10/325 was added to his regimen alternating with Tylenol and he was instructed to not take the gabapentin in the event that was causing his swelling. Unfortunately as noted above he slid OOB and was weak and so presented to the ER. Swing Bed Course: Patient worked with PT and progressed VERY slowly. He desired to go on pass for Thanksgiving however it was deemed he would need too much cares. He did struggle to sleep initially however it did improved with Ramelteon. His redness and edema improved to Upper extremity. He did suffer skin tear to Right antecubital and was monitored and covered. Code status, DNR, POLST signed and on file during ACUTE stay Disposition/overall plan --Will DC to [facility]. [facility] half-way for PT/OT. Anticipiate DC home soon. - Patient Data Vitals - Most Recent: Last Vital Signs Temp 97.9 F 03/03/21 09:00 Pulse 89 03/03/21 10:28 Resp 19 03/03/21 09:00 BP 118/69 03/03/21 10:28 Pulse Ox 96 03/03/21 09:00 Weight - Most Recent: 290 lb 5 oz I&O - Last 24 hours: Intake & Output 03/02/21 03/03/21 03/03/21 22:59 06:59 14:59 Intake Total 500 300 Output Total 500 Balance 500 -200 Lab Results - Last 24 hrs: Laboratory Results - last 24 hr 03/03/21 Range/Units 10:50 SARS CoV-2 RNA Rapid FRANK Negative (NEGATIVE) Med Orders - Current: Current Medications Acetaminophen (Acetaminophen 325 Mg Tab) 650 mg PO Q4H PRN PRN Reason: Pain (Mild 1-3)/fever Last Admin: 02/25/21 00:25 Dose: 650 mg Documented by: Acetaminophen (Acetaminophen 650 Mg Tab.Er) 650 mg PO DAILY [facility] Last Admin: 03/03/21 08:34 Dose: 650 mg Documented by: Hydrocodone Bitart/Acetaminophen (Acetaminophen/Hydrocodone 325-10 Mg Tab) 1 tab PO Q6HR PRN PRN Reason: Pain Last Admin: 03/03/21 08:33 Dose: 1 tab Documented by: Allopurinol (Allopurinol 100 Mg Tab) 100 mg PO DAILY [facility] Last Admin: 03/03/21 10:28 Dose: 100 mg Documented by: Apixaban (Apixaban 5 Mg Tab) 5 mg PO BID [facility] Last Admin: 03/03/21 10:28 Dose: 5 mg Documented by: Atorvastatin Calcium (Atorvastatin 10 Mg Tab) 20 mg PO DAILY [facility] Last Admin: 03/03/21 10:27 Dose: 20 mg Documented by: Diclofenac Sodium (Diclofenac Sodium 1% Gel 100 Gm Tube) 1 gm TOP BID PRN PRN Reason: Pain Last Admin: 03/02/21 22:25 Dose: 1 applic Documented by: Docusate Sodium (Docusate Sodium 100 Mg Cap) 100 mg PO DAILY PRN PRN Reason: Constipation Last Admin: 03/01/21 08:27 Dose: 100 mg Documented by: Fish Oil (Fish Oil/Arvin-3 Fatty Acids 1 Gm Cap) 1 gm PO DAILY [facility] Last Admin: 03/03/21 10:33 Dose: 1 gm Documented by: Lorazepam (Lorazepam 0.5 Mg Tab) 1 mg PO BEDTIME PRN PRN Reason: Insomnia Last Admin: 03/03/21 00:12 Dose: 1 mg Documented by: Magnesium Hydroxide (Magnesium Hydroxide 400 Mg/5 Ml Susp 30 Ml Cup) 30 ml PO DAILY PRN PRN Reason: Constipation Last Admin: 03/02/21 17:08 Dose: 30 ml Documented by: Metoprolol Succinate (Metoprolol Succinate 50 Mg Tab.Er) 50 mg PO DAILY [facility] Last Admin: 03/03/21 10:28 Dose: 50 mg Documented by: Multivitamins/Minerals (Multivitamins With Minerals/Iron/Folic Acid/Lycopene Tab) 1 tab PO DAILY [facility] Last Admin: 03/03/21 10:33 Dose: 1 tab Documented by: Ondansetron HCl (Ondansetron 4 Mg Tab.Dis) 4 mg PO Q4H PRN PRN Reason: Nausea Otezla 30mg Tablet - (Ptom) 1 each PO BID [facility] Last Admin: 03/03/21 10:36 Dose: 1 each Documented by: Vitamin D 50,000 (Unit Cap - Ptom) 1 each PO MO ISIDRO Promethazine 25mg (Tablet) 1 each PO Q6H PRN PRN Reason: Nausea Last Admin: 02/24/21 13:44 Dose: 1 each Documented by: Rafiq Lettsworth - Ptom 1 each TOP DAILY PRN PRN Reason: affected areas, psoriasis Last Admin: 03/01/21 21:51 Dose: 1 each Documented by: Polyethylene Glycol (Polyethylene Glycol 3350 Powder 17 Gm Packet) 17 gm PO DAILY PRN PRN Reason: Constipation Last Admin: 03/01/21 22:00 Dose: 17 gm Documented by: Potassium Chloride (Potassium Chloride 20 Meq Tab.Er) 20 meq PO BID [facility] Last Admin: 03/03/21 10:27 Dose: 20 meq Documented by: Ramelteon (Ramelteon 8 Mg Tab) 8 mg PO BEDTIME PRN PRN Reason: Insomnia Last Admin: 03/02/21 22:25 Dose: 8 mg Documented by: Simethicone (Simethicone 80 Mg Tab.Chew) 80 mg PO QID PRN PRN Reason: heart burn/Stomach upset Last Admin: 02/24/21 21:07 Dose: 80 mg Documented by: Tramadol HCl (Tramadol 50 Mg Tab) 50 mg PO Q6H PRN PRN Reason: Nausea Last Admin: 03/01/21 04:14 Dose: 50 mg Documented by: Triamcinolone Acetonide (Triamcinolone Acetonide 0.1% Oint 15 Gm Tube) 1 gm TOP BID [facility] Last Admin: 03/03/21 10:35 Dose: 1 applic Documented by: Discontinued Medications Mirtazapine (Mirtazapine 15 Mg Tab) 15 mg PO BEDTIME PRN PRN Reason: Insomnia Last Admin: 02/21/21 20:41 Dose: 15 mg Documented by: Potassium Chloride (Potassium Chloride 20 Meq Tab.Er) 40 meq PO BID [facility] Last Admin: 02/21/21 08:22 Dose: Not Given Documented by: Potassium Chloride (Potassium Chloride 20 Meq Tab.Er) 20 meq PO WITHBREAKFAST ISIDRO Last Admin: 02/21/21 08:21 Dose: 20 meq Documented by: Potassium Chloride (Potassium Chloride 20 Meq Tab.Er) 20 meq PO DAILY ISIDRO Stop: 02/25/21 23:59 Last Admin: 02/22/21 16:41 Dose: Not Given Documented by: Sodium Chloride (Sodium Chloride 0.9% 10 Ml Syringe) 10 ml FLUSH Q8HR PRN PRN Reason: keep vein open Zolpidem Tartrate (Zolpidem 5 Mg Tab) 10 mg PO BEDTIME PRN PRN Reason: Insomnia Last Admin: 02/20/21 20:42 Dose: 10 mg Documented by:
== END 2021-03-03 12:00 | DRG 948 ==
LOC: KA.MS 11:50
PROVIDERS: ADMIT Nurse Practitioner Family; ATTEND Nurse Practitioner Family
DX: R53.1 Weakness (principal); E87.6 Hypokalemia; G62.2 Polyneuropathy due to other toxic agents; T45.1X5A Adverse effect of antineoplastic and immunosuppressive drugs, initial encounter; M19.90 Unspecified osteoarthritis, unspecified site; M10.9 Gout, unspecified; E78.5 Hyperlipidemia, unspecified; L40.9 Psoriasis, unspecified; C4A.9 Merkel cell carcinoma, unspecified; Z66 Do not resuscitate; Z20.822 Contact with and (suspected) exposure to COVID-19; Z79.899 Other long term (current) drug therapy
CPT/HCPCS: 36415; 80053; 85025; 97110-GO; 97110-GP; 97140-GP; 97161-GP; 97530-GO; 97530-GP; 97535-GO; A9270-GY; U0002

== ENCOUNTER 2023-10-27 16:42 | Inpatient (IN) | payer MEDICARE, OTHER ==
[2023-10-27 18:28] LABS: BASOPHILS ABSOLUTE AUTO 0.03 10^3/uL (0.00-0.10); BASOPHILS PERCENT AUTO 0.6 % (0.0-1.0); EOSINOPHILS ABSOLUTE AUTO 0.34 10^3/uL (0.10-0.30); EOSINOPHILS PERCENT AUTO 6.4 % (1.0-3.0); HEMATOCRIT 45.8 % (40.0-52.0); HEMOGLOBIN 14.4 g/dL (13.0-17.0); IMMATURE GRAN ABSOLUTE AUTO 0.01 10^3/uL (0.00-0.50); IMMATURE GRAN PERCENT AUTO 0.2 % (0.0-5.0); LYMPHOCYTES PERCENT AUTO 13.1 % (20.0-40.0); MEAN CORPUSCULAR HEMOGLOBIN 30.1 pg (27.0-31.0); MEAN CORPUSCULAR HGB CONC 31.4 g/dL (32.0-36.0); MEAN CORPUSCULAR VOLUME 95.6 fL (82.0-92.0); MEAN PLATELET VOLUME 10.3 fL (7.4-10.4); MONOCYTES ABSOLUTE AUTO 0.43 10^3/uL (0.10-0.80); MONOCYTES PERCENT AUTO 8.1 % (2.0-8.0); NEUTROPHILS ABSOLUTE AUTO 3.82 10^3/uL (2.50-7.00); NEUTROPHILS PERCENT AUTO 71.6 % (50.0-70.0); PLATELET COUNT,PLT 149 10^3/uL (150-400); RED BLOOD CELL COUNT 4.79 10^6/uL (4.50-6.00); RED CELL DISTRIBUTION WIDTH 15.4 % (11.5-14.5); WHITE BLOOD CELL COUNT,WBC 5.33 10^3/uL (5.00-10.00)
[2023-10-27 18:52] LABS: ALBUMIN 3.35 g/dL (3.40-5.00); BILIRUBIN TOTAL 2.1 mg/dL (0.2-1.0); CALCIUM 9.2 mg/dL (8.7-10.3); CARBON DIOXIDE,CO2 38.7 mmol/L (21.0-32.0); CREATININE 0.69 mg/dL (0.51-1.17); EST CRCL DRUG DOSING (CG) 86.39 mL/min; POTASSIUM,K 2.7 mmol/L (3.5-5.1); PROTEIN TOTAL,TP 7.2 g/dL (6.4-8.2)
[2023-10-27] MEDS ORDERED: Sodium Chloride 0.9% 10 ML Syringe FLUSH PRN (22:57)
[2023-10-27] MEDS ORDERED: Docusate Sodium 100 MG Cap PO PRN (22:57)
[2023-10-27] MEDS ORDERED: Ondansetron 4 MG Tab.DIS PO PRN (22:57)
[2023-10-27] MEDS ORDERED: hydrALAZINE 20 MG/ML SDV IVPUSH PRN (23:08)
[2023-10-28] MEDS: Potassium Chloride 20 MEQ in Premix Bag 1 BAG IV ONE ×2 (00:08→09:35)
[2023-10-28] MEDS: Cetirizine 10 MG Tab PO SCH (00:10)
[2023-10-28] MEDS: Apixaban 5 MG Tab PO SCH (00:10)
[2023-10-28] MEDS: Gabapentin 300 MG Cap PO SCH (00:15)
[2023-10-28] MEDS: Brimonidine 0.2% Ophth Soln 15 ML Bottle EYEBOTH SCH (00:16)
[2023-10-28] MEDS: Melatonin 3 MG Tab PO PRN (00:16)
[2023-10-28 07:14] LABS: BASOPHILS ABSOLUTE AUTO 0.03 10^3/uL (0.00-0.10); BASOPHILS PERCENT AUTO 0.6 % (0.0-1.0); EOSINOPHILS ABSOLUTE AUTO 0.25 10^3/uL (0.10-0.30); EOSINOPHILS PERCENT AUTO 4.7 % (1.0-3.0); HEMATOCRIT 41.7 % (40.0-52.0); LYMPHOCYTES ABSOLUTE AUTO 0.56 10^3/uL (1.00-4.00); LYMPHOCYTES PERCENT AUTO 10.6 % (20.0-40.0); MEAN CORPUSCULAR HEMOGLOBIN 30.4 pg (27.0-31.0); MEAN CORPUSCULAR HGB CONC 31.2 g/dL (32.0-36.0); MEAN CORPUSCULAR VOLUME 97.4 fL (82.0-92.0); MEAN PLATELET VOLUME 9.8 fL (7.4-10.4); MONOCYTES PERCENT AUTO 7.6 % (2.0-8.0); NEUTROPHILS ABSOLUTE AUTO 4.03 10^3/uL (2.50-7.00); NEUTROPHILS PERCENT AUTO 76.5 % (50.0-70.0); PLATELET COUNT,PLT 134 10^3/uL (150-400); RED BLOOD CELL COUNT 4.28 10^6/uL (4.50-6.00); RED CELL DISTRIBUTION WIDTH 15.5 % (11.5-14.5); WHITE BLOOD CELL COUNT,WBC 5.27 10^3/uL (5.00-10.00)
[2023-10-28 07:48] LABS: ALBUMIN 2.84 g/dL (3.40-5.00); ANION GAP 5.5 mmol/L (5-15); BILIRUBIN TOTAL 1.8 mg/dL (0.2-1.0); CALCIUM 8.6 mg/dL (8.7-10.3); CARBON DIOXIDE,CO2 42.1 mmol/L (21.0-32.0); CREATININE 0.81 mg/dL (0.51-1.17); EST CRCL DRUG DOSING (CG) 73.6 mL/min; MAGNESIUM 2.2 mg/dL (1.8-2.4); POTASSIUM,K 2.6 mmol/L (3.5-5.1); PROTEIN TOTAL,TP 6.4 g/dL (6.4-8.2)
[2023-10-28] MEDS: atorvaSTATin 10 MG Tab PO SCH (08:22)
[2023-10-28] MEDS: Calcium Citrate/Vitamin D3 315 MG-250 Unit Tab PO SCH (08:22)
[2023-10-28] MEDS: Allopurinol 100 MG Tab PO SCH (08:22)
[2023-10-28] MEDS: Potassium Chloride 20 MEQ Tab.ER PO SCH (08:36)
[2023-10-28] MEDS: Ondansetron 4 MG/2 ML SDV IV PRN (08:36)
[2023-10-28] MEDS: Furosemide 40 MG/4 ML VIAL IVPUSH SCH (08:36)
[2023-10-28] MEDS: Potassium Chloride 20 MEQ Tab.ER PO ONE (09:31)
[2023-10-28] MEDS: Diclofenac Sodium 1% Gel 100 GM Tube TOP PRN (09:31)
[2023-10-28] MEDS: Polyethylene Glycol 3350 Powder 17 GM Packet PO PRN (11:13)
[2023-10-28 17:08] LABS: ANION GAP 5.8 mmol/L (5-15); CALCIUM 9.1 mg/dL (8.7-10.3); CARBON DIOXIDE,CO2 42.6 mmol/L (21.0-32.0); CREATININE 0.77 mg/dL (0.51-1.17); EST CRCL DRUG DOSING (CG) 77.42 mL/min; MAGNESIUM 2.2 mg/dL (1.8-2.4); POTASSIUM,K 3.4 mmol/L (3.5-5.1)
[2023-10-28] MEDS: Latanoprost 0.005% Ophth Soln 2.5 ML Bottle EYELF SCH (20:04)
[2023-10-28] MEDS: Acetaminophen 325 MG Tab PO PRN (20:13)
[2023-10-29 08:37] LABS: BASOPHILS ABSOLUTE AUTO 0.03 10^3/uL (0.00-0.10); BASOPHILS PERCENT AUTO 0.5 % (0.0-1.0); EOSINOPHILS ABSOLUTE AUTO 0.34 10^3/uL (0.10-0.30); EOSINOPHILS PERCENT AUTO 5.6 % (1.0-3.0); HEMOGLOBIN 13.6 g/dL (13.0-17.0); LYMPHOCYTES ABSOLUTE AUTO 0.57 10^3/uL (1.00-4.00); LYMPHOCYTES PERCENT AUTO 9.4 % (20.0-40.0); MEAN CORPUSCULAR HEMOGLOBIN 30.2 pg (27.0-31.0); MEAN CORPUSCULAR HGB CONC 29.6 g/dL (32.0-36.0); MEAN CORPUSCULAR VOLUME 102.2 fL (82.0-92.0); MEAN PLATELET VOLUME 11.5 fL (7.4-10.4); MONOCYTES ABSOLUTE AUTO 0.46 10^3/uL (0.10-0.80); MONOCYTES PERCENT AUTO 7.6 % (2.0-8.0); NEUTROPHILS ABSOLUTE AUTO 4.65 10^3/uL (2.50-7.00); NEUTROPHILS PERCENT AUTO 76.9 % (50.0-70.0); PLATELET COUNT,PLT 115 10^3/uL (150-400); RED CELL DISTRIBUTION WIDTH 15.7 % (11.5-14.5); WHITE BLOOD CELL COUNT,WBC 6.05 10^3/uL (5.00-10.00)
[2023-10-29 08:58] LABS: ALBUMIN 2.99 g/dL (3.40-5.00); ANION GAP 4.5 mmol/L (5-15); BILIRUBIN TOTAL 1.8 mg/dL (0.2-1.0); C-REACTIVE PROTEIN 0.98 mg/dL (0.00-0.50); CALCIUM 8.6 mg/dL (8.7-10.3); CARBON DIOXIDE,CO2 42.8 mmol/L (21.0-32.0); CREATININE 0.76 mg/dL (0.51-1.17); EST CRCL DRUG DOSING (CG) 78.44 mL/min; MAGNESIUM 2.2 mg/dL (1.8-2.4); POTASSIUM,K 3.3 mmol/L (3.5-5.1); PROTEIN TOTAL,TP 6.7 g/dL (6.4-8.2)
[2023-10-29] MEDS: Magnesium Oxide 500 MG Tab PO ONE (09:31)
[2023-10-29] MEDS: Bumetanide 1 MG Tab PO SCH (14:34)
[2023-10-29] MEDS: Potassium Chloride 20 MEQ Tab.ER PO SCH (14:34)
[2023-10-29] MEDS ORDERED: Bumetanide 1 MG/4 ML MDV IVPUSH ONE (15:00)
[2023-10-29] MEDS: APREMILAST 30 MG PO SCH (21:37)
[2023-10-29] MEDS: Nystatin Ointment 15 GM Tube TOP SCH (21:39)
[2023-10-30 07:03] LABS: BASOPHILS ABSOLUTE AUTO 0.02 10^3/uL (0.00-0.10); BASOPHILS PERCENT AUTO 0.3 % (0.0-1.0); HEMATOCRIT 44.3 % (40.0-52.0); HEMOGLOBIN 13.2 g/dL (13.0-17.0); IMMATURE GRAN ABSOLUTE AUTO 0.01 10^3/uL (0.00-0.50); IMMATURE GRAN PERCENT AUTO 0.2 % (0.0-5.0); LYMPHOCYTES ABSOLUTE AUTO 0.65 10^3/uL (1.00-4.00); LYMPHOCYTES PERCENT AUTO 10.8 % (20.0-40.0); MEAN CORPUSCULAR HGB CONC 29.8 g/dL (32.0-36.0); MEAN CORPUSCULAR VOLUME 100.7 fL (82.0-92.0); MEAN PLATELET VOLUME 10.2 fL (7.4-10.4); MONOCYTES ABSOLUTE AUTO 0.39 10^3/uL (0.10-0.80); MONOCYTES PERCENT AUTO 6.5 % (2.0-8.0); NEUTROPHILS ABSOLUTE AUTO 4.67 10^3/uL (2.50-7.00); NEUTROPHILS PERCENT AUTO 77.2 % (50.0-70.0); PLATELET COUNT,PLT 138 10^3/uL (150-400); RED CELL DISTRIBUTION WIDTH 15.5 % (11.5-14.5); WHITE BLOOD CELL COUNT,WBC 6.04 10^3/uL (5.00-10.00)
[2023-10-30 07:21] LABS: ANION GAP 4.5 mmol/L (5-15); CALCIUM 8.6 mg/dL (8.7-10.3); CARBON DIOXIDE,CO2 41.8 mmol/L (21.0-32.0); CREATININE 0.69 mg/dL (0.51-1.17); EST CRCL DRUG DOSING (CG) 86.39 mL/min; MAGNESIUM 2.1 mg/dL (1.8-2.4); POTASSIUM,K 3.3 mmol/L (3.5-5.1)
[2023-10-30] MEDS ORDERED: Polyethylene Glycol 400 15 ML Bottle EYEBOTH PRN (10:00)
[2023-10-30] MEDS: Potassium Chloride 20 MEQ Tab.ER PO ONE (11:29)
[2023-10-30] MEDS: Bumetanide 1 MG/4 ML MDV IVPUSH ONE (11:29)
[2023-10-30] MEDS: acetaZOLAMIDE 250 MG in Sodium Chloride 0.9% 50 ML IV SCH (11:34)
[2023-10-30] MEDS: Sodium Chloride 0.9% 100 ML IV SCH (11:35)
[2023-10-30] MEDS ORDERED: [UNRECOGNIZED DRUG - OTHER] TOP PRN (21:16)
[2023-10-31 07:17] LABS: BASOPHILS ABSOLUTE AUTO 0.02 10^3/uL (0.00-0.10); BASOPHILS PERCENT AUTO 0.4 % (0.0-1.0); EOSINOPHILS ABSOLUTE AUTO 0.37 10^3/uL (0.10-0.30); EOSINOPHILS PERCENT AUTO 7.4 % (1.0-3.0); HEMATOCRIT 43.5 % (40.0-52.0); HEMOGLOBIN 12.8 g/dL (13.0-17.0); IMMATURE GRAN ABSOLUTE AUTO 0.01 10^3/uL (0.00-0.50); IMMATURE GRAN PERCENT AUTO 0.2 % (0.0-5.0); LYMPHOCYTES ABSOLUTE AUTO 0.75 10^3/uL (1.00-4.00); MEAN CORPUSCULAR HEMOGLOBIN 29.7 pg (27.0-31.0); MEAN CORPUSCULAR HGB CONC 29.4 g/dL (32.0-36.0); MEAN CORPUSCULAR VOLUME 100.9 fL (82.0-92.0); MEAN PLATELET VOLUME 10.7 fL (7.4-10.4); NEUTROPHILS ABSOLUTE AUTO 3.45 10^3/uL (2.50-7.00); PLATELET COUNT,PLT 132 10^3/uL (150-400); RED BLOOD CELL COUNT 4.31 10^6/uL (4.50-6.00); RED CELL DISTRIBUTION WIDTH 15.5 % (11.5-14.5)
[2023-10-31 07:31] LABS: ANION GAP 4.3 mmol/L (5-15); CALCIUM 8.7 mg/dL (8.7-10.3); CARBON DIOXIDE,CO2 39.4 mmol/L (21.0-32.0); CREATININE 0.73 mg/dL (0.51-1.17); EST CRCL DRUG DOSING (CG) 81.66 mL/min; MAGNESIUM 2.1 mg/dL (1.8-2.4); POTASSIUM,K 3.7 mmol/L (3.5-5.1)
[2023-10-31] MEDS: Bacitracin/Neomycin/Polymyxin B Oint 28.4 GM Tube TOP SCH (08:42)
[2023-10-31] MEDS: Furosemide 40 MG/4 ML VIAL IVPUSH ONE (11:43)
[2023-10-31] MEDS: Cefdinir 300 MG Cap PO SCH (11:47)
[2023-10-31] MEDS: acetaZOLAMIDE 250 MG in Sodium Chloride 0.9% 50 ML IV ONE (13:01)
[2023-11-01 07:14] LABS: BASOPHILS ABSOLUTE AUTO 0.03 10^3/uL (0.00-0.10); BASOPHILS PERCENT AUTO 0.6 % (0.0-1.0); EOSINOPHILS ABSOLUTE AUTO 0.41 10^3/uL (0.10-0.30); EOSINOPHILS PERCENT AUTO 8.4 % (1.0-3.0); HEMATOCRIT 47.2 % (40.0-52.0); HEMOGLOBIN 14.1 g/dL (13.0-17.0); LYMPHOCYTES ABSOLUTE AUTO 0.61 10^3/uL (1.00-4.00); LYMPHOCYTES PERCENT AUTO 12.4 % (20.0-40.0); MEAN CORPUSCULAR HEMOGLOBIN 29.7 pg (27.0-31.0); MEAN CORPUSCULAR HGB CONC 29.9 g/dL (32.0-36.0); MEAN CORPUSCULAR VOLUME 99.4 fL (82.0-92.0); MEAN PLATELET VOLUME 9.9 fL (7.4-10.4); MONOCYTES ABSOLUTE AUTO 0.33 10^3/uL (0.10-0.80); MONOCYTES PERCENT AUTO 6.7 % (2.0-8.0); NEUTROPHILS ABSOLUTE AUTO 3.52 10^3/uL (2.50-7.00); NEUTROPHILS PERCENT AUTO 71.9 % (50.0-70.0); PLATELET COUNT,PLT 140 10^3/uL (150-400); RED BLOOD CELL COUNT 4.75 10^6/uL (4.50-6.00); RED CELL DISTRIBUTION WIDTH 15.2 % (11.5-14.5)
[2023-11-01 07:31] LABS: ANION GAP 6.2 mmol/L (5-15); CALCIUM 8.9 mg/dL (8.7-10.3); CARBON DIOXIDE,CO2 37.4 mmol/L (21.0-32.0); CREATININE 0.74 mg/dL (0.51-1.17); EST CRCL DRUG DOSING (CG) 80.56 mL/min; MAGNESIUM 2.2 mg/dL (1.8-2.4); POTASSIUM,K 3.6 mmol/L (3.5-5.1)
[2023-11-01] MEDS: Midodrine 5 MG Tab PO SCH (17:35)
== END 2023-11-02 11:22 | disposition swing bed (61) | DRG 291 ==
LOC: KA.ED 16:42 → KA.MS 21:00
PROVIDERS: ADMIT Internal Medicine; ATTEND Internal Medicine
DX: S80.822A Blister (nonthermal), left lower leg, initial encounter (principal); I11.0 Hypertensive heart disease with heart failure; I50.33 Acute on chronic diastolic (congestive) heart failure; R60.9 Edema, unspecified; E66.9 Obesity, unspecified; J96.01 Acute respiratory failure with hypoxia; I10 Essential (primary) hypertension; Z68.41 Body mass index [BMI] 40.0-44.9, adult; E87.3 Alkalosis; E87.6 Hypokalemia; I87.2 Venous insufficiency (chronic) (peripheral); E65 Localized adiposity; K21.9 Gastro-esophageal reflux disease without esophagitis; E80.6 Other disorders of bilirubin metabolism; D69.6 Thrombocytopenia, unspecified; G47.33 Obstructive sleep apnea (adult) (pediatric); E78.00 Pure hypercholesterolemia, unspecified; E66.01 Morbid (severe) obesity due to excess calories; M10.9 Gout, unspecified; K59.09 Other constipation; G47.30 Sleep apnea, unspecified; I48.0 Paroxysmal atrial fibrillation; S80.821A Blister (nonthermal), right lower leg, initial encounter; L08.9 Local infection of the skin and subcutaneous tissue, unspecified; E86.1 Hypovolemia; M19.90 Unspecified osteoarthritis, unspecified site; S80.822D Blister (nonthermal), left lower leg, subsequent encounter; Z79.01 Long term (current) use of anticoagulants; Z79.899 Other long term (current) drug therapy; Z98.890 Other specified postprocedural states; Z98.49 Cataract extraction status, unspecified eye; Z87.891 Personal history of nicotine dependence; X58.XXXA Exposure to other specified factors, initial encounter
CPT/HCPCS: 36415; 71045; 80048; 80053; 83735; 83880; 84443; 85025; 86140; 87070; 87075; 87186; 87205; 99223-GT; 99232-GT; 99233-GT; 99239-GT; 99284; 99285; A9270-GY; J1120; J1940; J2405; J3480; J3490; Q3014

== ENCOUNTER 2023-11-02 12:26 | Inpatient (IN) | payer MEDICARE, OTHER ==
[2023-11-02] MEDS ORDERED: Sodium Chloride 0.9% 10 ML Syringe FLUSH PRN ×2 (12:41)
[2023-11-02] MEDS ORDERED: [UNRECOGNIZED DRUG - OTHER] TOP PRN (12:41)
[2023-11-02] MEDS ORDERED: Ondansetron 4 MG/2 ML SDV IV PRN (12:41)
[2023-11-02] MEDS ORDERED: Ondansetron 4 MG Tab.DIS PO PRN (12:41)
[2023-11-02] MEDS ORDERED: Melatonin 3 MG Tab PO PRN (12:41)
[2023-11-02] MEDS ORDERED: Docusate Sodium 100 MG Cap PO PRN (12:41)
[2023-11-02] MEDS ORDERED: Sodium Chloride 0.9% 100 ML IV SCH (12:41)
[2023-11-02] MEDS ORDERED: hydrALAZINE 20 MG/ML SDV IVPUSH PRN (12:41)
[2023-11-02] MEDS: Potassium Chloride 20 MEQ Tab.ER PO SCH (15:10)
[2023-11-02] MEDS: Bumetanide 1 MG Tab PO SCH (15:11)
[2023-11-02] MEDS: Midodrine 5 MG Tab PO SCH (17:51)
[2023-11-02] MEDS: Nystatin Ointment 15 GM Tube TOP SCH (20:14)
[2023-11-02] MEDS: Cefdinir 300 MG Cap PO SCH (20:35)
[2023-11-02] MEDS: APREMILAST 30 MG PO SCH (20:35)
[2023-11-02] MEDS: Gabapentin 300 MG Cap PO SCH (20:35)
[2023-11-02] MEDS: Cetirizine 10 MG Tab PO SCH (20:35)
[2023-11-02] MEDS: Apixaban 5 MG Tab PO SCH (20:35)
[2023-11-02] MEDS: Latanoprost 0.005% Ophth Soln 2.5 ML Bottle EYELF SCH (20:36)
[2023-11-02] MEDS: Brimonidine 0.2% Ophth Soln 15 ML Bottle EYEBOTH SCH (20:36)
[2023-11-03] MEDS: Calcium Citrate/Vitamin D3 315 MG-250 Unit Tab PO SCH (08:04)
[2023-11-03] MEDS: Allopurinol 100 MG Tab PO SCH (08:04)
[2023-11-03] MEDS: atorvaSTATin 10 MG Tab PO SCH (08:04)
[2023-11-03] MEDS: Polyethylene Glycol 3350 Powder 17 GM Packet PO PRN (08:09)
[2023-11-03] MEDS: Bacitracin/Neomycin/Polymyxin B Oint 28.4 GM Tube TOP SCH (09:00)
[2023-11-03] MEDS: Amoxicillin/Clavulanate K 875-125 MG Tab PO SCH ×2 (12:56→21:07)
[2023-11-03] MEDS: Diclofenac Sodium 1% Gel 100 GM Tube TOP PRN (20:46)
[2023-11-04] MEDS: Polyethylene Glycol 400 15 ML Bottle EYEBOTH PRN (12:44)
[2023-11-05 07:35] LABS: ALBUMIN 2.9 g/dL (3.40-5.00); ANION GAP 7.8 mmol/L (5-15); CARBON DIOXIDE,CO2 36.7 mmol/L (21.0-32.0); CREATININE 0.73 mg/dL (0.51-1.17); EST CRCL DRUG DOSING (CG) 81.66 mL/min; PHOSPHORUS 3.4 mg/dL (2.6-4.7); POTASSIUM,K 4.5 mmol/L (3.5-5.1)
[2023-11-05] MEDS: Acetaminophen 325 MG Tab PO PRN (09:00)
[2023-11-08 08:06] LABS: BASOPHILS ABSOLUTE AUTO 0.04 10^3/uL (0.00-0.10); BASOPHILS PERCENT AUTO 0.6 % (0.0-1.0); EOSINOPHILS ABSOLUTE AUTO 0.37 10^3/uL (0.10-0.30); EOSINOPHILS PERCENT AUTO 5.1 % (1.0-3.0); HEMATOCRIT 48.4 % (40.0-52.0); HEMOGLOBIN 15.2 g/dL (13.0-17.0); IMMATURE GRAN ABSOLUTE AUTO 0.02 10^3/uL (0.00-0.50); IMMATURE GRAN PERCENT AUTO 0.3 % (0.0-5.0); LYMPHOCYTES ABSOLUTE AUTO 0.93 10^3/uL (1.00-4.00); LYMPHOCYTES PERCENT AUTO 12.9 % (20.0-40.0); MEAN CORPUSCULAR HEMOGLOBIN 29.9 pg (27.0-31.0); MEAN CORPUSCULAR HGB CONC 31.4 g/dL (32.0-36.0); MEAN CORPUSCULAR VOLUME 95.1 fL (82.0-92.0); MEAN PLATELET VOLUME 10.5 fL (7.4-10.4); MONOCYTES ABSOLUTE AUTO 0.55 10^3/uL (0.10-0.80); MONOCYTES PERCENT AUTO 7.6 % (2.0-8.0); NEUTROPHILS ABSOLUTE AUTO 5.28 10^3/uL (2.50-7.00); NEUTROPHILS PERCENT AUTO 73.5 % (50.0-70.0); PLATELET COUNT,PLT 172 10^3/uL (150-400); RED BLOOD CELL COUNT 5.09 10^6/uL (4.50-6.00); RED CELL DISTRIBUTION WIDTH 14.8 % (11.5-14.5); WHITE BLOOD CELL COUNT,WBC 7.19 10^3/uL (5.00-10.00)
[2023-11-08 08:21] LABS: ANION GAP 10.2 mmol/L (5-15); CALCIUM 9.4 mg/dL (8.7-10.3); CARBON DIOXIDE,CO2 33.7 mmol/L (21.0-32.0); CREATININE 0.82 mg/dL (0.51-1.17); EST CRCL DRUG DOSING (CG) 72.7 mL/min; MAGNESIUM 2.2 mg/dL (1.8-2.4); POTASSIUM,K 3.9 mmol/L (3.5-5.1)
== END 2023-11-08 14:30 | disposition home or self-care (01) | DRG 291 ==
LOC: KA.MS 12:26
PROVIDERS: ADMIT Internal Medicine; ATTEND Internal Medicine
DX: I11.0 Hypertensive heart disease with heart failure (principal); I50.33 Acute on chronic diastolic (congestive) heart failure; J96.21 Acute and chronic respiratory failure with hypoxia; Z68.41 Body mass index [BMI] 40.0-44.9, adult; E87.3 Alkalosis; I48.91 Unspecified atrial fibrillation; E78.5 Hyperlipidemia, unspecified; K21.9 Gastro-esophageal reflux disease without esophagitis; G47.33 Obstructive sleep apnea (adult) (pediatric); E66.01 Morbid (severe) obesity due to excess calories; S80.821A Blister (nonthermal), right lower leg, initial encounter; S80.822A Blister (nonthermal), left lower leg, initial encounter; E87.6 Hypokalemia; I87.2 Venous insufficiency (chronic) (peripheral); E86.1 Hypovolemia; B96.4 Proteus (mirabilis) (morganii) as the cause of diseases classified elsewhere; B95.61 Methicillin susceptible Staphylococcus aureus infection as the cause of diseases classified elsewhere; B96.83 Acinetobacter baumannii as the cause of diseases classified elsewhere; Z79.01 Long term (current) use of anticoagulants; Z79.899 Other long term (current) drug therapy
CPT/HCPCS: 36415; 80048; 80069; 83735; 85025; 99307-GT; 99316-GT; A9270-GY; Q3014

== ENCOUNTER 2023-12-26 23:35 | Emergency (ER) | payer MEDICARE, OTHER ==
[2023-12-27] MEDS: Sodium Chloride 0.9% 10 ML Syringe FLUSH PRN (00:10)
[2023-12-27] MEDS: Ketorolac 30 MG/ML SDV IVPUSH ONE ×2 (00:18→01:20)
[2023-12-27 00:30] LABS: BASOPHILS ABSOLUTE AUTO 0.03 10^3/uL (0.00-0.10); BASOPHILS PERCENT AUTO 0.5 % (0.0-1.0); EOSINOPHILS ABSOLUTE AUTO 0.42 10^3/uL (0.10-0.30); EOSINOPHILS PERCENT AUTO 6.7 % (1.0-3.0); HEMATOCRIT 43.2 % (40.0-52.0); HEMOGLOBIN 13.8 g/dL (13.0-17.0); IMMATURE GRAN ABSOLUTE AUTO 0.02 10^3/uL (0.00-0.50); IMMATURE GRAN PERCENT AUTO 0.3 % (0.0-5.0); LYMPHOCYTES ABSOLUTE AUTO 0.85 10^3/uL (1.00-4.00); LYMPHOCYTES PERCENT AUTO 13.5 % (20.0-40.0); MEAN CORPUSCULAR HGB CONC 31.9 g/dL (32.0-36.0); MEAN CORPUSCULAR VOLUME 93.9 fL (82.0-92.0); MEAN PLATELET VOLUME 10.4 fL (7.4-10.4); MONOCYTES ABSOLUTE AUTO 0.38 10^3/uL (0.10-0.80); NEUTROPHILS ABSOLUTE AUTO 4.59 10^3/uL (2.50-7.00); PLATELET COUNT,PLT 159 10^3/uL (150-400); RED CELL DISTRIBUTION WIDTH 15.7 % (11.5-14.5); WHITE BLOOD CELL COUNT,WBC 6.29 10^3/uL (5.00-10.00)
[2023-12-27 00:48] LABS: ALANINE AMINOTRANSFERASE,ALT 15 U/L (14-63); ALBUMIN 3.32 g/dL (3.40-5.00); ALKALINE PHOSPHATASE 157 U/L (46-116); ANION GAP 10.2 mmol/L (5-15); ASPARTATE AMNIOTRANSFERASE,AST 23 U/L (15-37); BILIRUBIN TOTAL 1.1 mg/dL (0.2-1.0); BLOOD UREA NITROGEN,BUN 20 mg/dL (7-18); C-REACTIVE PROTEIN < 0.50 mg/dL (0.00-0.50); CALCIUM 9.4 mg/dL (8.7-10.3); CARBON DIOXIDE,CO2 36.1 mmol/L (21.0-32.0); CHLORIDE,CL 98 mmol/L (98-107); CREATININE 0.86 mg/dL (0.51-1.17); EST CRCL DRUG DOSING (CG) 69.32 mL/min; ESTIMATED GFR 86 mL/min (>=60); GLUCOSE RANDOM 127 mg/dL (70-140); POTASSIUM,K 3.3 mmol/L (3.5-5.1); PROTEIN TOTAL,TP 7.7 g/dL (6.4-8.2); SODIUM,NA 141 mmol/L (136-145)
== END 2023-12-27 01:32 | disposition home or self-care (01) ==
LOC: KA.ED 23:35
DX: M25.512 Pain in left shoulder (principal); I11.0 Hypertensive heart disease with heart failure; I50.9 Heart failure, unspecified; I48.91 Unspecified atrial fibrillation; E78.00 Pure hypercholesterolemia, unspecified; K21.9 Gastro-esophageal reflux disease without esophagitis; E66.9 Obesity, unspecified; Z79.899 Other long term (current) drug therapy; Z79.01 Long term (current) use of anticoagulants; Z68.36 Body mass index [BMI] 36.0-36.9, adult
CPT/HCPCS: 73030-LT; 80053; 83880; 84484; 85025; 86140; 93005; 93010; 96374; 96376; 99284; 99284-25; J1885; J3490

== ENCOUNTER 2024-12-08 07:31 | Inpatient (IN) | payer MEDICARE, OTHER ==
[2024-12-08] MEDS ORDERED: Sodium Chloride 0.9% 10 ML Syringe FLUSH PRN (07:45)
[2024-12-08 08:07] LABS: BASOPHILS ABSOLUTE AUTO 0.01 10^3/uL (0.00-0.10); BASOPHILS PERCENT AUTO 0.1 % (0.0-1.0); EOSINOPHILS ABSOLUTE AUTO 0.15 10^3/uL (0.10-0.30); EOSINOPHILS PERCENT AUTO 1.9 % (1.0-3.0); IMMATURE GRAN ABSOLUTE AUTO 0.01 10^3/uL (0.00-0.04); IMMATURE GRAN PERCENT AUTO 0.1 % (0.0-0.4); LYMPHOCYTES ABSOLUTE AUTO 0.58 10^3/uL (1.00-4.00); LYMPHOCYTES PERCENT AUTO 7.4 % (20.0-40.0); MEAN PLATELET VOLUME 10.6 fL (7.4-10.4); MONOCYTES ABSOLUTE AUTO 0.30 10^3/uL (0.10-0.80); MONOCYTES PERCENT AUTO 3.8 % (2.0-8.0); NEUTROPHILS ABSOLUTE AUTO 6.82 10^3/uL (2.50-7.00); NEUTROPHILS PERCENT AUTO 86.7 % (50.0-70.0); PLATELET COUNT,PLT 133 10^3/uL (150-400); RED BLOOD CELL COUNT 5.56 10^6/uL (4.50-6.00); RED CELL DISTRIBUTION WIDTH 16.6 % (11.5-14.5); WHITE BLOOD CELL COUNT,WBC 7.87 10^3/uL (5.00-10.00)
[2024-12-08 08:19] LABS: ALANINE AMINOTRANSFERASE,ALT 14.0 U/L (14-63); ASPARTATE AMNIOTRANSFERASE,AST 22.0 U/L (15-37); BILIRUBIN TOTAL 1.5 mg/dL (0.2-1.0); BLOOD UREA NITROGEN,BUN 16.0 mg/dL (7-18); CARBON DIOXIDE,CO2 37.9 mmol/L (21.0-32.0); CHLORIDE,CL 102.0 mmol/L (98-107); CREATININE 0.79 mg/dL (0.51-1.17); EST CRCL DRUG DOSING (CG) 71.87 mL/min; GLUCOSE RANDOM 173.0 mg/dL (70-140); POTASSIUM,K 3.6 mmol/L (3.5-5.1); PROTEIN TOTAL,TP 8.0 g/dL (6.4-8.2); SODIUM,NA 147.0 mmol/L (136-145)
[2024-12-08 08:20] LABS: ESTIMATED GFR 88.0 mL/min (>=60)
[2024-12-08 08:24] LABS: B-TYPE NATRIURETIC PEPTIDE,BNP 164.0 pg/mL (0-100)
[2024-12-08 08:45] LABS: PCO2 ARTERIAL,POC 62 mmHg (35-48); PH ARTERIAL,POC 7.41 pH (7.35-7.45)
[2024-12-08 08:46] LABS: BASE EXCESS ARTERIAL,POC 12 mmol/L ((-2)-3); HCO3 ARTERIAL,POC 39.3 mmol/L (21-28); O2 SATURATION ARTERIAL,POC 84.9 % (94-98); PO2 ARTERIAL,POC 52 mmHg (83-108); TCO2 ARTERIAL,POC 38 mmol/L (22-29)
[2024-12-08] MEDS: Furosemide 40 MG/4 ML VIAL IVPUSH ONE ×2 (08:47→13:20)
[2024-12-08] MEDS: Trolamine Salicylate/Aloe Vera 10% Crm 85 GM Tube TOP PRN (15:20)
[2024-12-08] MEDS: Brimonidine 0.2% Ophth Soln 15 ML Bottle EYEBOTH SCH (20:31)
[2024-12-09 07:40] LABS: BLOOD UREA NITROGEN,BUN 21.0 mg/dL (7-18); CARBON DIOXIDE,CO2 41.9 mmol/L (21.0-32.0); CHLORIDE,CL 102.0 mmol/L (98-107); CREATININE 0.85 mg/dL (0.51-1.17); EST CRCL DRUG DOSING (CG) 66.8 mL/min; ESTIMATED GFR 86.0 mL/min (>=60); GLUCOSE RANDOM 118.0 mg/dL (70-140); POTASSIUM,K 3.3 mmol/L (3.5-5.1); SODIUM,NA 146.0 mmol/L (136-145)
[2024-12-09] MEDS: Fish Oil/Omega-3 Fatty Acids 1 Gm Cap PO SCH (08:46)
[2024-12-09] MEDS: Potassium Chloride 20 MEQ Tab.ER PO SCH (09:19)
[2024-12-09] MEDS: Furosemide 40 MG/4 ML VIAL IVPUSH SCH (09:20)
[2024-12-10 07:39] LABS: BLOOD UREA NITROGEN,BUN 21.0 mg/dL (7-18); CARBON DIOXIDE,CO2 44.8 mmol/L (21.0-32.0); CHLORIDE,CL 99.0 mmol/L (98-107); CREATININE 0.75 mg/dL (0.51-1.17); EST CRCL DRUG DOSING (CG) 75.7 mL/min; GLUCOSE RANDOM 115.0 mg/dL (70-140); POTASSIUM,K 2.8 mmol/L (3.5-5.1); SODIUM,NA 145.0 mmol/L (136-145)
[2024-12-10 07:40] LABS: ESTIMATED GFR 89.0 mL/min (>=60)
[2024-12-10] MEDS: Potassium Chloride 20 MEQ Tab.ER PO SCH (09:22)
[2024-12-10 20:25] LABS: LACTIC ACID 1.4 mmol/L (0.4-2.0)
[2024-12-11 07:40] LABS: BLOOD UREA NITROGEN,BUN 18.0 mg/dL (7-18); CREATININE 0.7 mg/dL (0.51-1.17); EST CRCL DRUG DOSING (CG) 81.11 mL/min; GLUCOSE RANDOM 118.0 mg/dL (70-140)
[2024-12-11 07:57] LABS: CARBON DIOXIDE,CO2 45.0 mmol/L (21.0-32.0); CHLORIDE,CL 97.0 mmol/L (98-107); POTASSIUM,K 2.8 mmol/L (3.5-5.1); SODIUM,NA 146.0 mmol/L (136-145)
[2024-12-11 07:58] LABS: ESTIMATED GFR 91.0 mL/min (>=60)
[2024-12-11] MEDS: Potassium Chloride 20 MEQ in Premix Bag 1 BAG IV ONE (11:05)
[2024-12-11] MEDS: Potassium Chloride 10 MEQ Tab.ER PO ONE (11:08)
[2024-12-11] MEDS: Potassium Chloride 20 MEQ Tab.ER PO ONE (11:12)
== END 2024-12-11 15:35 | disposition home or self-care (01) | DRG 291 ==
LOC: KA.ED 07:31 → KA.MS 09:35
PROVIDERS: ADMIT Family Medicine; ATTEND Family Medicine
PROC: 4A033R1 Measurement of Arterial Saturation, Peripheral, Percutaneous Approach (ICD-10-PCS; principal; 2024-12-08)
DX: I11.0 Hypertensive heart disease with heart failure (principal); I50.33 Acute on chronic diastolic (congestive) heart failure; J96.01 Acute respiratory failure with hypoxia; I48.91 Unspecified atrial fibrillation; E78.5 Hyperlipidemia, unspecified; K21.9 Gastro-esophageal reflux disease without esophagitis; G47.33 Obstructive sleep apnea (adult) (pediatric); E66.01 Morbid (severe) obesity due to excess calories; H54.7 Unspecified visual loss; E78.00 Pure hypercholesterolemia, unspecified; G47.30 Sleep apnea, unspecified; K59.09 Other constipation; N40.0 Benign prostatic hyperplasia without lower urinary tract symptoms; M10.9 Gout, unspecified; M19.90 Unspecified osteoarthritis, unspecified site; G62.9 Polyneuropathy, unspecified; F41.9 Anxiety disorder, unspecified; Z66 Do not resuscitate; I87.2 Venous insufficiency (chronic) (peripheral); I25.10 Atherosclerotic heart disease of native coronary artery without angina pectoris; H40.9 Unspecified glaucoma; E87.6 Hypokalemia; Z68.38 Body mass index [BMI] 38.0-38.9, adult; Z87.891 Personal history of nicotine dependence; Z79.01 Long term (current) use of anticoagulants; Z79.899 Other long term (current) drug therapy; Z98.49 Cataract extraction status, unspecified eye; Z90.89 Acquired absence of other organs; Z98.890 Other specified postprocedural states
CPT/HCPCS: 36415; 36600; 71045; 80048; 80053; 82803; 83605; 83735; 83880; 84484; 85025; 93010; 94640; 96374; 99223-GT; 99232-GT; 99233-GT; 99239-GT; 99284; 99285-25; A9270-GY; J1938; J3480; Q3014